=== PATIENT | female | born 1980 | race Caucasian/White ===

== ENCOUNTER 2017-04-03 12:26 | Emergency (ER) | payer MEDICAID ==
[~2017-04-03] VITALS: Ht 157.5 cm; Wt 97.5 kg
[~2017-04-03 12:26] MED LIST: ALBUTEROL0.09 MG/A1 IH; ALBUTEROL0.09 MG/A3 IH; AMOXICILLIN 50500 MG PO; ATIVAN1 MG PO; BACTRIM DS 8001 TA1 PO; BACTRIM DS 8001 TAB PO; BIAXIN FILMTAB500 MG PO; BUSPAR 5MG TAB5 MG PO; BUTALBITAL, ACE1 CA1 PO; CIPRO 500MG TA500 MG PO; CLONAZEPAM 1MG T1 MG PO; DICYCLOMINE HCL20 MG PO; FAMOTIDINE40 MG PO; FIORICET1 CAP PO; FLEXERIL10 MG PO; FLUOXETINE20 M2 FT; GABAPENTIN300 M1 PO; HYCODAN 5MG. TAB5 MG PO; IBU800 MG PO; KEFLEX 250MG.250 MG PO; KLONOPIN1 MG PO; LORTAB 5/500 501 TAB PO; LYRICA75 MG PO; MACROBID 100MG100 MG PO; MEDROL 4MG. DOSE4 MG PO; MOTRIN600 M1 PO; NAPROXEN SODIU500 MG PO; NYSTATIN100000 U/M PO; PAXIL40 MG PO; PERCOCET 5/3251 EACH PO; PHENERGAN 25MG.25 M1 PO; PHENERGAN25 M3 PO; PNV PRENATAL HE1 TAB PO; PREDNISONE 20MG20 MG PO; PROCARDIA PO; PROTONIX40 MG PO; PROZAC 20MG CAP20 MG PO; PYRIDIATE200 MG PO; PYRIDIUM 200MG200 MG PO; QUETIAPINE FUM100 M2 PO; RESTORIL 30MG C30 MG PO; SEROQUEL200 MG PO; SEROQUEL400 MG PO; SEROQUEL50 MG PO; SUBUTEX8 M1 SL; TRAMADOL 50MG T50 M1 PO; TRAMADOL 50MG T50 MG PO; TRAMADOL HYDRO100 MG PO; TRAZODONE100 MG PO; TYLENOL W/CODEI1 TA2 PO; ULTRAM50 MG PO; VISTARIL25 MG PO; XANAX 1MG TABLET1 MG PO; ZITHROMAX Z PA250 MG PO; ZITHROMAX Z-PA250 M1 PO; ZOFRAN4 MG PO
[2017-04-03] MEDS ORDERED: VENTOLIN H0.09 MG/Ac IH (12:40)
[2017-04-03] MEDS ORDERED: GABAPENTIN 600600 MG PO (12:40)
[2017-04-03] MEDS ORDERED: PANTOPRAZOLE SO40 M1 PO (12:40)
[2017-04-03] MEDS ORDERED: VISTARIL50 MG PO (12:41)
[2017-04-03] MEDS ORDERED: PRILOSEC20 M1 PO (12:41)
[2017-04-03] MEDS ORDERED: FLEXERIL10 MG PO (12:42)
[2017-04-03] MEDS ORDERED: LIORESAL 10MG.10 MG PO (13:06)
--- NOTE | 2017-04-03 13:07 | Urgent Treatment Center Report ---
History of Present Issue Date/Time Seen by Provider 04/03/17 1245 Visit Reason Pt arrived:Walked Presenting Problem:PT IS VERY ANXIOUS. PT STATES SHE HAS A H/A AND SEVERE ANXIETY. WAS SEEN AT [facility] LAST WEEK AND INSTRUCTED TO F/UP WITH HER DR. Location if Accident: Onset of symptoms date/time:/ or onset unknown for:MEDICAL HX UNKNOWN Have you (or family members/close friends) recently traveled outside the [place]? N If Yes, where/when: Have you had exposure to infectious disease within the past month? TB? Other? Specify: Patient state that she has history of anxiety. State that she is normally on Baclofen State that she ran out the medication and had to take a few flexeril States that they made her feel even more nervous and she began having a headache which has caused her anxiety to get worse. State that she has been trying to get in to see her family doctor but he has been out of the office ALLERGIES Coded Allergies: SHELLFISH (FOOD) (Intermediate, ANAPHYLAXIS 01/02/17) ketorolac (From TORADOL) (Intermediate, 04/03/17) Uncoded Allergies: CONTRAST DYE (Severe, ANAPHYLAXIS 01/02/17) Home Medications Reported Medications Albuterol Sulfate (Ventolin Hfa) 0.09 MG IH PRN PRN ASTHMA #18 Gabapentin (Gabapentin 600MG) 800 MG PO Q8 #90 Pantoprazole Sodium 40 MG PO DAILY #30 OMEPRAZOLE MAGNESIUM (Prilosec 20MG) 20 MG PO BID Hydroxyzine Pamoate (Vistaril) 50 MG PO BID Cyclobenzaprine Hcl (Flexeril) 5 MG PO TID History Medical History General CAD? No Angina: No [place]: No Hypertension? No Hyperlipidemia? Yes CHF? No DVT? No PE? No COPD? No Asthma? Yes Anemia? No GERD? No Gastric ulcers? No GI Bleed? No Hernia? Yes Thyroid Problems? No Hypothyroidism? No CVA? No Seizures? Yes Diabetes? No Insulin Dependent: No Insulin Pump: No Home FSBS? No Renal Insuffiency? No UTI? No Stones? No BPH? No GB Disease: Yes Nephritic Syndrome? No Asplenia? No Hepatitis? Yes Sickle Cell Disease? No Arthritis? No Migraines? Yes Cataracts? No Glaucoma? No MRSA? No HIV? No TB? No Anxiety? Yes Depression? No Cancer? No Immunization HX DT/Tetanus 1-4 Years Ago Surgical Hx Previous Surgery?Y TUMOR REMOVED FROM FOOT C SECTION X 3 GALLBLADDER Social History Smoking Hx Packs/day < 1 Pack Alcohol Alcohol: No Review of Systems All Other Systems Reviewed and Negative Psychiatric/Neurological anxiety, headache Comment Patient states that she recently moved here from [place] and she ran out of her baclofen states that she began taking Flexeril but it makes her anxiety worse and she then began with a headache from not sleeping well, State that not having her medication makes her feel more anxious so she came in to see if she could get her medication presccribed enough to do her until her family doctor returns to the office Physical Exam Vital Signs Vital Signs Date Time Temp Pulse Resp B/P Pulse O2 O2 Flow FiO2 Ox Delivery Rate 04/03 1237 98.3 107 20 151/95 99 General Appearance Patient appears slightly anxious standing in room beside exam table Respiratory Status Yes: trachea midline, chest symmetrical, non tender chest. No: respiratory distress. 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 No Results/Orders Current Medication Orders Sig/Cindy Start time Last Medication Dose Route Stop Time Status Admin Hydroxyzine Pamoate 25 MG ONCE ONE 04/03 1315 CAN PO 04/03 1316 Acetaminophen 1,000 MG ONCE ONE 04/03 1300 DC 04/03 PO 04/03 1301 1251 Diphenhydramine HCl 25 MG ONCE ONE 04/03 1300 CAN PO 04/03 1301 Hydroxyzine Pamoate 25 MG ONCE ONE 04/03 1300 DC 04/03 PO 04/03 1301 1302 Metoclopramide HCl 10 MG ONCE ONE 04/03 1300 CAN PO 04/03 1301 Hydroxyzine Pamoate 0 .STK-MED ONE 04/03 1256 DC PO Diphenhydramine HCl 0 .STK-MED ONE 04/03 1252 DC PO Acetaminophen 0 .STK-MED ONE 04/03 1248 DC PO Departure Departure Time of Disposition 1257 Disposition DC Home or Self Care(routine) Clinical Impression Primary Impression: Anxiety Condition STABLE Referrals DEBRA VOSS (Family) Patient Instructions DI for Anxiety -- Adult Additional Instructions Follow up with family doctor for further treatment REturn if needed Take medication as prescribed Discharge Counseling Counseled pt/family regarding diagnosis, medications/RX, home care, follow up needs Prescriptions Current Visit Scripts Baclofen (Lioresal 10mg Tab) 10 MG PO TID #30 TAB Comments Called Pharmacy Added Visteril 50mg enough tablets for 3 times daily for 30 days at 8220
--- NOTE | 2017-04-03 13:07 | Urgent Treatment Center Report ---
History of Present Issue Date/Time Seen by Provider 04/03/17 1245 Visit Reason Pt arrived:Walked Presenting Problem:PT IS VERY ANXIOUS. PT STATES SHE HAS A H/A AND SEVERE ANXIETY. WAS SEEN AT [facility] LAST WEEK AND INSTRUCTED TO F/UP WITH HER DR. Location if Accident: Onset of symptoms date/time:/ or onset unknown for:MEDICAL HX UNKNOWN Have you (or family members/close friends) recently traveled outside the [place]? N If Yes, where/when: Have you had exposure to infectious disease within the past month? TB? Other? Specify: Patient state that she has history of anxiety. State that she is normally on Baclofen State that she ran out the medication and had to take a few flexeril States that they made her feel even more nervous and she began having a headache which has caused her anxiety to get worse. State that she has been trying to get in to see her family doctor but he has been out of the office ALLERGIES Coded Allergies: SHELLFISH (FOOD) (Intermediate, ANAPHYLAXIS 01/02/17) ketorolac (From TORADOL) (Intermediate, 04/03/17) Uncoded Allergies: CONTRAST DYE (Severe, ANAPHYLAXIS 01/02/17) Home Medications Reported Medications Albuterol Sulfate (Ventolin Hfa) 0.09 MG IH PRN PRN ASTHMA #18 Gabapentin (Gabapentin 600MG) 800 MG PO Q8 #90 Pantoprazole Sodium 40 MG PO DAILY #30 OMEPRAZOLE MAGNESIUM (Prilosec 20MG) 20 MG PO BID Hydroxyzine Pamoate (Vistaril) 50 MG PO BID Cyclobenzaprine Hcl (Flexeril) 5 MG PO TID History Medical History General CAD? No Angina: No [place]: No Hypertension? No Hyperlipidemia? Yes CHF? No DVT? No PE? No COPD? No Asthma? Yes Anemia? No GERD? No Gastric ulcers? No GI Bleed? No Hernia? Yes Thyroid Problems? No Hypothyroidism? No CVA? No Seizures? Yes Diabetes? No Insulin Dependent: No Insulin Pump: No Home FSBS? No Renal Insuffiency? No UTI? No Stones? No BPH? No GB Disease: Yes Nephritic Syndrome? No Asplenia? No Hepatitis? Yes Sickle Cell Disease? No Arthritis? No Migraines? Yes Cataracts? No Glaucoma? No MRSA? No HIV? No TB? No Anxiety? Yes Depression? No Cancer? No Immunization HX DT/Tetanus 1-4 Years Ago Surgical Hx Previous Surgery?Y TUMOR REMOVED FROM FOOT C SECTION X 3 GALLBLADDER Social History Smoking Hx Packs/day < 1 Pack Alcohol Alcohol: No Review of Systems All Other Systems Reviewed and Negative Psychiatric/Neurological anxiety, headache Comment Patient states that she recently moved here from [place] and she ran out of her baclofen states that she began taking Flexeril but it makes her anxiety worse and she then began with a headache from not sleeping well, State that not having her medication makes her feel more anxious so she came in to see if she could get her medication presccribed enough to do her until her family doctor returns to the office Physical Exam Vital Signs Vital Signs Date Time Temp Pulse Resp B/P Pulse O2 O2 Flow FiO2 Ox Delivery Rate 04/03 1237 98.3 107 20 151/95 99 General Appearance Patient appears slightly anxious standing in room beside exam table Respiratory Status Yes: trachea midline, chest symmetrical, non tender chest. No: respiratory distress. 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 No Results/Orders Current Medication Orders Sig/Cindy Start time Last Medication Dose Route Stop Time Status Admin Hydroxyzine Pamoate 25 MG ONCE ONE 04/03 1315 CAN PO 04/03 1316 Acetaminophen 1,000 MG ONCE ONE 04/03 1300 DC 04/03 PO 04/03 1301 1251 Diphenhydramine HCl 25 MG ONCE ONE 04/03 1300 CAN PO 04/03 1301 Hydroxyzine Pamoate 25 MG ONCE ONE 04/03 1300 DC 04/03 PO 04/03 1301 1302 Metoclopramide HCl 10 MG ONCE ONE 04/03 1300 CAN PO 04/03 1301 Hydroxyzine Pamoate 0 .STK-MED ONE 04/03 1256 DC PO Diphenhydramine HCl 0 .STK-MED ONE 04/03 1252 DC PO Acetaminophen 0 .STK-MED ONE 04/03 1248 DC PO Departure Departure Time of Disposition 1257 Disposition DC Home or Self Care(routine) Clinical Impression Primary Impression: Anxiety Condition STABLE Referrals DEBRA VOSS (Family) Patient Instructions DI for Anxiety -- Adult Additional Instructions Follow up with family doctor for further treatment REturn if needed Take medication as prescribed Discharge Counseling Counseled pt/family regarding diagnosis, medications/RX, home care, follow up needs Prescriptions Current Visit Scripts Baclofen (Lioresal 10mg Tab) 10 MG PO TID #30 TAB Comments Called Pharmacy Added Visteril 50mg enough tablets for 3 times daily for 30 days at 3471
[2017-04-03 13:20] VITALS: BP 151/95
== END 2017-04-03 13:21 | disposition home or self-care (01) ==
LOC: UTC 12:26
DX: F41.9 Anxiety disorder, unspecified (principal); Z88.6 Allergy status to analgesic agent; J45.909 Unspecified asthma, uncomplicated; E78.5 Hyperlipidemia, unspecified; R56.9 Unspecified convulsions

== ENCOUNTER 2017-05-18 16:56 | Emergency (ER) | payer MEDICAID ==
[~2017-05-18] VITALS: Ht 157.5 cm; Wt 98.9 kg
[~2017-05-18 16:56] MED LIST changes: +GABAPENTIN 600600 MG PO; +LIORESAL 10MG.10 MG PO; +PANTOPRAZOLE SO40 M1 PO; +PRILOSEC20 M1 PO; +VENTOLIN H0.09 MG/Ac IH; +VISTARIL50 MG PO
--- OUTSIDE RECORDS SUMMARY | 2017-05-18 17:11 | External Medical Summary Rpt | CCD ---
Author Author , KRYSTAL RICE Address Unknown Phone [email or web address] Purpose Continuity of Care Document - 11-17-2011 through 2016 Results Labs Lab Lab Date Result Refere Interp Status Commen Order Detail nces retati t Range on Drugs identified in Urine by Screen method (01-02-2017 13:34) Ampheta NEGATIV <1000 complet mine 017 E ed [Presen 13:34 ce] in Urine by Screen method NEGATIV <50 complet oxy 017 E ed delta-9 13:34 tetrahy drocann abinol [Presen ce] in Unspeci fied specime n
--- OUTSIDE RECORDS SUMMARY | 2017-05-18 17:11 | External Medical Summary Rpt | CCD ---
Author Author , KRYSTAL RICE Address Unknown Phone [email or web address] Purpose Continuity of Care Document - 11-17-2011 [...]
--- OUTSIDE RECORDS SUMMARY | 2017-05-18 17:12 | External Medical Summary Rpt | CCD ---
Demographics Home Phone Preferred Language French Marital Status Unknown Adventist Affiliation Unknown Race Unknown Ethnic Group Unknown Author Author , KRYSTAL RICE Address Unknown Phone [email or web address] Support Name Relationship Address Phone VIET, Next Of Kin Unknown Unavailable AMARILYS Immunization Name Date Rout CVX Reac Dose Comm Prov Is Faci e tion ent ider Refu lity Give sed n Tdap 04-2 Intr 115 999 Hist 1005 No 1005 , 2-20 amus oric 00 00 Adso 15 cula al rbed r Info rmat ion - Sour ce Unsp ecif ied
--- OUTSIDE RECORDS SUMMARY | 2017-05-18 17:12 | External Medical Summary Rpt | CCD ---
Author Author [employer] Organization [employer] Address Unknown Phone Unavailable Purpose Continuity of Care Document - through 2016
--- OUTSIDE RECORDS SUMMARY | 2017-05-18 17:12 | External Medical Summary Rpt | CCD ---
Demographics Home Phone Preferred Language Bulgarian Marital Status Unknown Sabianist Affiliation Unknown Race Unknown Ethnic Group Unknown Author Author , KRYSTAL RICE Address Unknown Phone [email or web address] Name Relationship Address Phone IVET, Next Of Kin Unknown Unavailable AMARILYS Immunization Name Date Rout CVX Reac Dose Comm Prov Is Faci e tion ent ider Refu lity Give sed n Tdap 04-2 Intr 115 999 Hist 1005 No 1005 , 2-20 amus oric 00 00 Adso 15 cula al rbed r Info rmat ion - Sour ce Unsp ecif ied
--- OUTSIDE RECORDS SUMMARY | 2017-05-18 17:16 | External Medical Summary Rpt ---
Author Author ARZAFAR Hodges, [employer] Organization [employer] Address Unknown Phone Unavailable Results MPO/NE-3 Ab Observa Value Referen Units Interpr Notes Date tion ce etation Range Myelope Negativ No No No No Mar 30 roxidas e informa informa informa informa 2017 e Ab tion in tion in tion in tion in 10:34 IgG source source source source AM data data data data Protein Negativ No No No No Mar 30 ase-3 e informa informa informa informa 2016 Ab IgG tion in tion in tion in tion in 10:34 source source source source AM data data data data .RAST-[facility] Observa Value Referen Units Interpr Notes Date tion ce etation Range Ordered by an unspecified provider Immcap See No No No REFEREN Mar 30 Score-A Note informa informa informa CE 2017 [facility] tion in tion in tion in INTERVA 1:12 AM source source source L: data data data Allerge n, Interpr etation \\.br\\ Less than 0.10 kU/L... ...Clas s 0.....N o signifi cant level detecte d\\.br\\ 0.10-0. 34 kU/L... ....... .Class 0/1...C linical relevan ce\\.br\\ undeter mined\\. br\\ 0.35-0. 70 kU/L... ....... .Class 1.....L ow\\.br\\ 0.71-3. 50 kU/L... ....... .Class 2.....M oderate \\.br\\ 3.51-17 .50 kU/L... ....... Class 3.....H igh\\.br \\ 17.51-5 0.00 kU/L... ......C lass 4.....V adriano High\\.b r\\ 50.01-1 00.00 kU/L... .....Cl ass 5.....V adriano High\\.b r\\ Greater than 100.00k U/L..Cl ass 6.....V adriano High\\.b r\\Aller gen results of 0.10-0. 34 kU/L are intende d for special ist use\\.br \\as the clinica l relevan ce is undeter mined. Even though increas ing\\.br \\ranges are reflect alexia of increas ing concent rations of\\.br\\ allerge n-speci fic IgE, these concent rations may not correla te with\\.b r\\the degree of clinica l respons e or skin testing results when\\.b r\\chall enged with a specifi c allerge n. The correla tion of allergy \\.br\\la borator y results with clinica l history and in vivo reactiv ity to\\.br\\ specifi c allerge ns is essenti al. A negativ e test may not rule out\\.br \\clinic al allergy or even anaphyl axis.\\. br\\Perf ormed by [facility]ael,\\ .br\\[address] [facility] [place] [address] \\. br\\www. [employer] .Jemstep, Abdirashid Echevarria MD - Lab. Directo r REG5 FUCHS-[facility] Observa Value Referen Units Interpr Notes Date tion ce etation Range Common 0.12 <=0.34 kunits/ No No Mar 30 Ragweed L informa informa 2017 -[facility] tion in tion in 1:03 AM source source data data [place]roa 0.57 <=0.34 kunits/ High No Mar 30 chGerma L informa 2016 n-[facility] tion in 1:03 AM source data Sycamor 0.16 <=0.34 kunits/ No No Mar 30 e L informa informa 2017 Tree-AR tion in tion in 1:03 AM UP source source data data [place] 0.17 <=0.34 kunits/ No No Mar 30 Tree-AR L informa informa 2017 UP tion in tion in 1:03 AM source source data data Pecan 0.11 <=0.34 kunits/ No No Sep 21 Tree-AR L informa informa 2017 UP tion in tion in 1:03 AM source source data data Mouse <0.10 <=0.34 kunits/ No No Sep 21 Epithel L informa informa 2016 ium-[facility] tion in tion in 1:03 AM P source source data data M. 0.13 <=0.34 kunits/ No No Sep 21 racemos L informa informa 2017 us-[facility] tion in tion in 1:03 AM source source data data Whilte <0.10 <=0.34 kunits/ No No Sep Mulberr L informa informa 2017 y tion in tion in 1:03 AM Tree-AR source source UP data data Dog <0.10 <=0.34 kunits/ No No Sep 21 Dander- L informa informa 2016 [facility] tion in tion in 1:03 AM source source data data Sheep 0.12 <=0.34 kunits/ No No Sep [place]- L informa informa 2016 [facility] tion in tion in 1:03 AM source source data data IgE-[facility] 1005 <=214 kunits/ High REFEREN Sep 21 P L CE 2017 INTERVA 1:03 AM L: Immunog lobulin E, Serum\\. br\\Acce ss complet e set of age- and/or gender- specifi c referen ce\\.br\\ interva ls for this test in the [facility] ory Test Directo ry\\.br\\ ([email or web address]). Alterna <0.10 <=0.34 kunits/ No No Sep 21 kelly L informa informa 2016 alt-[facility] tion in tion in 1:03 AM P source source data data Box-eld 0.14 <=0.34 kunits/ No No Sep 21 er/Mapl L informa informa 2017 e tion in tion in 1:03 AM Tree-AR source source UP data data Cat <0.10 <=0.34 kunits/ No No Sep Epithel L informa informa 2016 ium-[facility] tion in tion in 1:03 AM P source source data data [place] 0.20 <=0.34 kunits/ No No Sep 21 n [place] L informa informa 2017 tion in tion in 1:03 AM Tree-AR source source UP data data Cottonw 0.13 <=0.34 kunits/ No No Sep 21 ood L informa informa 2017 Tree-AR tion in tion in 1:03 AM UP source source data data Milk-AR 0.20 <=0.34 kunits/ No Perform Sep 21 UP L informa ed by 2017 tion in [facility] 1:03 AM source Laborat data ories,\\ .br\\[address] [facility] [place] [address] \\. br\\www. Tindie, Abdirashid Echevarria MD - Lab. Directo r Peanut- 0.13 <=0.34 kunits/ No No Sep 21 [facility] L informa informa 2017 tion in tion in 1:03 AM source source data data Pigweed 0.10 <=0.34 kunits/ No No Sep 21 -[facility] L informa informa 2017 tion in tion in 1:03 AM source source data data Argentine 0.15 <=0.34 kunits/ No No Sep 21 L informa informa 2017 Thistle tion in tion in 1:03 AM -[facility] source source data data Paulo 0.12 <=0.34 kunits/ No No Sep 21 L informa informa 2017 Grass-A tion in tion in 1:03 AM [facility] source source data data Hormode <0.10 <=0.34 kunits/ No No Sep 21 ndrum-A L informa informa 2017 [facility] tion in tion in 1:03 AM source source data data Elm 0.14 <=0.34 kunits/ No No Sep 21 Tree-AR L informa informa 2017 UP tion in tion in 1:03 AM source source data data Winfield 0.11 <=0.34 kunits/ No No Sep 21 Tree-AR L informa informa 2017 UP tion in tion in 1:03 AM source source data data Birch <0.10 <=0.34 kunits/ No No Sep 21 Tree-AR L informa informa 2017 UP tion in tion in 1:03 AM source source data data Aspergi <0.10 <=0.34 kunits/ No No Sep 21 llus L informa informa 2017 fum-[facility] tion in tion in 1:03 AM P source source data data D <0.10 <=0.34 kunits/ No No Sep 21 pterony L informa informa 2017 ssinus- tion in tion in 1:03 AM [facility] source source data data D 0.20 <=0.34 kunits/ No No Sep 21 farinae L informa informa 2017 -[facility] tion in tion in 1:03 AM source source data data [place] 0.12 <=0.34 kunits/ No No Sep 21 L informa informa 2017 Grass-A tion in tion in 1:03 AM [facility] source source data data White <0.10 <=0.34 kunits/ No No Sep 21 Shaun L informa informa 2017 Tree-AR tion in tion in 1:03 AM UP source source data data P. 0.14 <=0.34 kunits/ No No Sep 21 notatum L informa informa 2017 -[facility] tion in tion in 1:03 AM source source data data Choudhury-[facility] Observa Value Referen Units Interpr Notes Date tion ce etation Range Choudhury 0 0 - 40 A_unit/ No INTERPR Sep 20 Ab mL informa ETIVE 2017 IgG-[facility] tion in INFORMA 6:26 PM P source TION: data CHOUDHURY (HANK) Ab, IgG\\.br \\ 29 AU/mL or Less ....... ...... Negativ e\\.br\\ 30 - 40 AU/mL ....... ....... .. Equivoc al\\.br\\ 41 AU/mL or Greater ....... ... Positiv e\\.br\\S mith antibod y is very specifi c for systemi c lupus erythem atosus\\ .br\\(SL E) but only occurs in 30-35% of SLE cases. The presenc e of\\.br\\ antibod ies to Choudhury is often associa jones with renal disease .\\.br\\P erforme d by [facility],\\ .br\\[address], [facility] [place] [address] \\. br\\www. Tindie, Abdirashid Echevarria MD - Lab. Directo r Scler IgG-[facility] Observa Value Referen Units Interpr Notes Date tion ce etation Range Scler 0 0 - 40 A_unit/ No INTERPR Sep 20 Ab mL informa ETIVE 2017 IgG-[facility] tion in INFORMA 6:26 PM P source TION: data Sclerod jane (Scl-70 ) (HANK) Ab, IgG\\.br \\ 29 AU/mL or Less ....... ...... Negativ e\\.br\\ 30 - 40 AU/mL ....... ....... .. Equivoc al\\.br\\ 41 AU/mL or Greater ....... ... Positiv e\\.br\\T he presenc e of Scl-70 antibod ies (also referre d to as\\.br\\ topoiso merase I, rafat-I or EBONIE) is conside red diagnos tic for\\.br \\system ic scleros is (SSc). Scl-70 antibod ies alone are detecte d in\\.br\\ about 20 percent of SSc patient s and are associa jones with the\\.br \\diffus e form of the disease , which may include specifi c organ\\. br\\invo lvement and poor prognos is. Scl-70 antibod ies have also been\\.b r\\repor jones in a varying percent age of patient s with systemi c lupus\\. br\\eryt hematos us (SLE). Scl-70 (rafat-1 ) is a DNA binding protein and\\.br \\anti-D NA/DNA complex es in the sera of SLE patient s may bind to\\.br\\ rafat-I, leading to a false-p ositive result. The presenc e of Scl-70\\ .br\\ant ibody in sera may also be due to contami nation of recombi nant\\.b r\\Scl-7 0 with DNA derived from cellula r materia l used in\\.br\\ immunoa ssays. Strong clinica l correla tion is recomme nded if both\\.b r\\Scl-7 0 and dsDNA antibod ies are detecte d.\\.br\\ Negativ e results do not necessa rily rule out the presenc e of SSc.\\.b r\\If clinica l suspici on remains , conside r further testing for\\.br \\centro mere, RNA polymer ase III and U3-RIM ROLLER OPERATOR, PM/Scl, or Th/To\\. br\\anti bodies. \\.br\\Pe rformed by [employer],\\ .br\\[address],[place] [id number] [phone]\\. br\\www. Tindie, Abdirashid Echevarria MD - Lab. Directo r RIM ROLLER OPERATOR IgG-[facility] Observa Value Referen Units Interpr Notes Date tion ce etation Range RIM ROLLER OPERATOR Ab 0 0 - 40 A_unit/ No INTERPR Sep 20 IgG-AR[facility] mL informa ETIVE 2016 P tion in INFORMA 6:26 PM source TION: data Ribonuc leic Protein (HANK)An tibody, IgG\\.br \\ 29 AU/mL or Less ....... ...... Negativ e\\.br\\ 30 - 40 AU/mL ....... ....... .. Equivoc al\\.br\\ 41 AU/mL or Greater ....... ... Positiv e\\.br\\R RESIDENTIAL COLLECTIONS antibod y is seen in 95-100 percent of mixed connect alexia tissue\\ .br\\dis ease and is conside red specifi c for this syndrom e if other\\. br\\anti bodies are negativ e; RIM ROLLER OPERATOR is also present in 20-30 percent of\\.br\\ systemi c lupus erythem atosus and 15-25 percent of progres sive\\.b r\\syste gail scleros is. RIM ROLLER OPERATOR antigen s also contain epitope s that are\\.br \\immuno logical ly identic al to free Choudhury antigen s, therefo re, the\\.br \\Choudhury antibod y respons e must be conside red when interpr eting RIM ROLLER OPERATOR\\.br \\result s.\\.br\\ Perform ed by [facility],\\ .br\\[address] [place] [address] [phone]\\. br\\www. Tindie, Abdirashid Echevarria MD - Lab. Directo r JAMEL Scn Observa Value Referen Units Interpr Notes Date tion ce etation Range JAMEL Negativ No No No \\.br\\AN Mar 29 Screen e informa informa informa A 2017 tion in tion in tion in samples 10:06 source source source are AM data data data screene d using an automat ed EIA assay. All samples that\\.b r\\scree n positiv e are titered by an IFA method and will include an JAMEL pattern .\\.br\\A titer of < 1:80 is conside red clinica lly insigni ficant. In general , a titer\\. br\\>= 1:160 is conside red signifi cant positiv e. CK Observa Value Referen Units Interpr Notes Date tion ce etation Range Creatin 79 26 - IU/L No No Mar 28 e 192 informa informa 2017 kinase tion in tion in 10:02 [Enzyma source source AM tic data data activit y/volum e] in Serum or Plasma Sed Rate Observa Value Referen Units Interpr Notes Date tion ce etation Range Erythro 12 0 - 20 mm/hr No No Mar 28 cyte informa informa 2017 sedimen tion in tion in 9:47 AM tation source source rate by data data [place] travis method CT CHEST WO CONTRAST Observa Value Referen Units Interpr Notes Date tion ce etation Range \\.br\\CT No No No No Jan 22 CHEST informa informa informa informa 2017 WO tion in tion in tion in tion in 2:16 PM CONTRAS source source source source T data data data data 01/23/20 17 2:16 PM\\.br\\ \\.br\\Cl inical: R93.8-A bnormal finding s on diagnos tic imaging of other specifi ed\\.br\\ body\\.b r\\struc tures-I CD-10-C M\\.br\\\\ .br\\COM PARISON S: PA and lateral chest x-ray, dated 017.\\.b r\\\\.br\\ TECHNIC AL FACTORS : Helical ly acquire d axial images were obtaine d from the\\.br \\thorac ic inlet through the upper abdomen . Images were reforma tted at 5mm\\.br \\increm ents. No contras t was adminis tered.\\ .br\\\\.b r\\FINDI NGS:\\.b r\\\\.br\\ The trachea and central airways are patent. There are no pleural effusio ns.\\.br \\There are bilater al symmetr ic diffuse mild patchy areas of groundg lass\\.b r\\opaci ty.\\.br \\The finding s are in both lungs but are most pronoun panda in the upper lung\\.b r\\zones .\\.br\\T here is a benign calcifi ed granulo ma in the right lower lobe and calcifi ed\\.br\\ right hilar and subcari nal lymph nodes consist ent with old granulo matous\\ .br\\dis ease. There are no suspici ous pulmona ry nodules or masses in the chest.\\ .br\\\\.b r\\The thyroid gland is normal. The esophag us is normal. There is no\\.br\\ mediast inal or\\.br\\ hilar lymphad enopath y. There is no axillar y lymphad enopath y.\\.br\\ \\.br\\Th e upper abdomen is normal. \\.br\\\\. br\\IMPR ESSION: \\.br\\\\. br\\Ther e are mild bilater al scatter ed diffuse patchy ground glass opaciti es\\.br\\ through out both lungs, slightl y more pronoun panda in the upper lobes. The\\.br \\findin g\\.br\\i s nonspec ific and include s a broad differe ntial of possibi lities to\\.br\\ include \\.br\\in fection , chronic interst itial lung disease or hyperse nsitivi ty\\.br\\ pneumon itis.\\. br\\\\.br \\There is CT evidenc e of old granulo matous disease .\\.br\\ Choriogonadotropin.beta subunit [Units] in 24 hour Urine Observa Value Referen Units Interpr Notes Date tion ce etation Range Choriogon NEG No No No Jan 02 adotropin informati informati informati 2016 1:34 .beta on in on in on in PM subunit source source source [Units] data data data in 24 hour Urine Drugs identified in Urine by Screen method Observa Value Referen Units Interpr Notes Date tion ce etation Range Positive urine drug screen samples are stored for 7 days. Contact the Lab if confirmation of positives is needed. Ampheta NEGATIV <1000 ng/mL No No Jan 02 mine E informa informa 2016 [Presen tion in tion in 1:34 PM ce] in source source Urine data data by Screen method Barbitura <200 ng/mL No No Jan 02 anjel informati informati 2016 1:34 [Mass/vol on in on in PM ume] in source source Urine by data data Screen method Benzodiaz 200 ng/mL ng/mL No No Jan 02 epines informati informati 2016 1:34 [Mass/vol on in on in PM ume] in source source Serum or data data Plasma by Screen method Cocaine <300 ng/g No No Jan 02 [Mass/vol informati informati 2017 1:34 ume] in on in on in PM Unspecifi source source ed data data specimen Methadone <300 ng/mL No No Jan 02 informati informati 2016 1:34 [Mass/vol on in on in PM ume] in source source Unspecifi data data ed specimen Opiates <300 ng/mL No No Jan 02 [Mass/vol informati informati 2016 1:34 ume] in on in on in PM Unspecifi source source ed data data specimen Phencycli <25 ng/mL No Jan 02 dine informati informati 2016 1:34 [Mass/vol on in on in PM ume] in source source Unspecifi data data ed specimen 11-Hydr NEGATIV <50 ng/mL No No Jan 02 oxy E informa informa 2017 delta-9 tion in tion in 1:34 PM source source tetrahy data data drocann abinol [Presen ce] in Unspeci fied specime n Amylase [Enzymatic activity/volume] in Serum or Plasma Observa Value Referen Units Interpr Notes Date tion ce etation Range Amylase 25 - 115 U/L Normal No Jan 02 [Enzymati informati 2017 1:34 c on in PM activity/ source volume] data in Serum or Plasma Comprehensive metabolic 2000 panel in Serum or Plasma Observa Value Referen Units Interpr Notes Date tion ce etation Range Albumin/G 1.1 - 1.8 No Low No Jan 02 lobulin informati informati 2016 1:34 [Mass on in on in PM ratio] in source source Serum or data data Plasma Albumin 3.4 - 5.0 gm/dL Normal No Jan 02 [Mass/vol informati 2016 1:34 ume] in on in PM Serum or source Plasma data Alkaline 46 - 116 U/L High No Jan 02 phosphata informati 2016 1:34 se on in PM [Enzymati source c data activity/ volume] in Serum or Plasma Bilirubin 0.2 - 1.0 mg/dL Normal No Jan 02 .total informati 2016 1:34 [Mass/vol on in PM ume] in source Serum or data Plasma Urea 7 - 18 mg/dL Normal No Jan 02 nitrogen informati 2016 1:34 [Mass/vol on in PM ume] in source Serum or data Plasma Calcium 8.5 - mg/dL Normal No Jan 02 [Mass/vol 10.1 informati 2016 1:34 ume] in on in PM Serum or source Plasma data Chloride 98 - 107 mmoL/L Normal No Jan 02 [Moles/vo informati 2016 1:34 lume] in on in PM Serum or source Plasma data Carbon 21.0 - mmoL/L Normal No Jan 02 dioxide, 32.0 informati 2017 1:34 total on in PM [Moles/vo source lume] in data Serum or Plasma Creatinin 0.55 - mg/dL Normal No Jan 02 e 1.02 informati 2016 1:34 [Mass/vol on in PM ume] in source Serum or data Plasma Creatinin 50 - 200 ML/MIN Normal No Jan 02 e renal informati 2016 1:34 clearance on in PM source predicted data by Cockcroft -Gault formula Estimated 59- ML/MIN No REFERENCE Jan 02 informati RANGE: 2017 1:34 glomerula on in >60 PM r source ML/MIN/1. filtratio data 73 SQUARE n rate METERSIf (GF this patient is -A merican, then multiply theresult by 1.210. Globulin 1.3 - 3.2 gm/dL High No Jan 02 [Mass/vol informati 2016 1:34 ume] in on in PM Serum source data Glucose 74 - 106 mg/dL Normal No Jan 02 [Mass/vol informati 2016 1:34 ume] in on in PM Serum or source Plasma data Potassium 3.5 - 5.1 mmoL/L Normal No Jan 02 inform2016 1:34 [Moles/vo on in PM lume] in source Serum or data Plasma Sodium 136 - 145 mmoL/L Normal No Jan 02 [Moles/vo inform2016 1:34 lume] in on in PM Serum or source Plasma data Aspartate 15 - 37 U/L Normal No Jan 02 inform2016 1:34 aminotran on in PM sferase source [Enzymati data c activity/ volume] in Serum or Plasma Alanine 12 - 78 U/L Normal No Jan 02 aminotran inform2016 1:34 sferase on in PM [Enzymati source c data activity/ volume] in Serum or Plasma Protein 6.4 - 8.2 gm/dL Normal No Jan 02 [Mass/vol inform2016 1:34 ume] in on in PM Serum or source Plasma data Lipase [Enzymatic activity/volume] in Serum or Plasma Observa Value Referen Units Interpr Notes Date tion ce etation Range Lipase 73 - 393 U/L Normal No Jan 02 [Enzymati informati 2016 1:34 c on in PM activity/ source volume] data in Serum or Plasma CBC W Auto Differential panel in Blood Observa Value Referen Units Interpr Notes Date tion ce etation Range Granulocy 1.8 - 7.8 K/mm3 High No Jan 02 anjel informati 2016 1:34 [#/volume on in PM ] in source Blood by data Automated count Granulocy 37.0 - % Normal No Jan 02 anjel/100 80.0 informati 2016 1:34 leukocyte on in PM s in source Blood by data Automated count Hematocri 37.0 - % Normal No Jan 02 t [Volume 47.0 ati 2016 1:34 on in PM Fraction] source of Blood data Hemoglobi 12.2 - g/dL Normal No Jan 02 n 16.2 informati 2016 1:34 [Mass/vol on in PM ume] in source Blood data Lymphocyt 0.7 - 4.5 K/mm3 Normal No Jan 02 es informati 2016 1:34 [#/volume on in PM ] in source Unspecifi data ed specimen by Automated count Lymphocyt 10 - 50.0 % Normal No Jan 02 es informati 2016 1:34 [#/volume on in PM ] in source Unspecifi data ed specimen by Automated count Erythrocy 27 - 31.2 pg Normal No Jan 02 te mean informati 2016 1:34 corpuscul on in PM ar source hemoglobi data n [Entitic mass] Erythrocy 31.8 - g/dl Normal No Jan 02 te mean 35.4 informati 2016 1:34 corpuscul on in PM ar source hemoglobi data n concentra tion [Mass/vol ume] by Automated count Erythrocy 82.2 - fL Normal No Jan 02 te mean 97.8 informati 2016 1:34 corpuscul on in PM ar volume source [Entitic data volume] by Automated count Monocytes 0.1 - 1.0 K/mm3 Normal No Jan 02 informati 2016 1:34 [#/volume on in PM ] in source Blood by data Automated count Monocytes 1.7 - 9.3 % Normal No Jan 02 / informati 2016 1:34 leukocyte on in PM s in source Blood by data Automated count Platelets 142 - 424 K/mm3 Normal No Jan 02 informati 2016 1:34 [#/volume on in PM ] in source Blood data Erythrocy 4.2 - 5.4 M/mm3 Normal No Jan 02 anjel informati 2016 1:34 [#/volume on in PM ] in source Amniotic data fluid Erythrocy 11.5 - % Normal Jan 02 te 17.5 informati 2016 1:34 distribut on in PM ion width source [Entitic data volume] by Automated count Leukocyte 4.8 - K/mm3 High No Jan 02 s 10.8 informati 2016 1:34 [#/volume on in PM ] in source Blood data XR CHEST PA AND LATERAL Observa Value Referen Units Interpr Notes Date tion ce etation Range \\.br\\XR No No No No Dec 08 CHEST informa informa informa informa 2016 PA AND tion in tion in tion in tion in 1:57 PM LATERAL source source source source data data data data 7 1:57 PM\\.br\\ \\.br\\CL INICAL: -report ed history of left lung mass and right lung "spot"\\ .br\\\\.b r\\Findi ngs: Calcifi ed granulo ma present in lower right lung. Lungs otherwi se\\.br\\ clear. I have reviewe d a CT of March 06, 2011 that shows a 3 to 4 mm\\.br\\ noncalc ified subpleu ral nodule in the right middle lobe. Current \\.br\\re commend ations\\ .br\\do not require follow- up for a nodule of this size in a patient of this age\\.br \\must\\. br\\ther e is a history of maligna ncy. That nodule is too small and too faint to\\.br\\ be\\.br\\ seen by chest radiogr aph.\\.b r\\\\.br\\ IMPRESS ION:\\.b r\\No focal infiltr ate. Calcifi ed granulo ma lower right lung.\\. br\\ Lipase Observa Value Referen Units Interpr Notes Date tion ce etation Range Lipase 34 13 - 60 IU/L No No Dec 08 Lvl informa informa 2017 tion in tion in 1:22 PM source source data data HCG Qual Observa Value Referen Units Interpr Notes Date tion ce etation Range HCG Negativ No No No No Dec 08 QUAL e informa informa informa informa 2017 tion in tion in tion in tion in 1:19 PM source source source source data data data data Auto Diff Observa Value Referen Units Interpr Notes Date tion ce etation Range Neutrop 69.8 No % No No Dec 08 hils informa informa informa 2016 [#/volu tion in tion in tion in 1:09 PM me] in source source source Blood data data data by Automat ed count Lymphoc 23.1 No % No No Dec 08 ytes informa informa informa 2016 [#/volu tion in tion in tion in 1:09 PM me] in source source source Blood data data data by Automat ed count Monocyt 5.8 No % No No Jose 1 es informa informa informa 2016 [#/volu tion in tion in tion in 1:09 PM me] in source source source Blood data data data by Automat ed count Eos 0.7 No % No No Jose 1 Percent informa informa informa 2017 tion in tion in tion in 1:09 PM source source source data data data Baso 0.6 No % No No Jose 1 Percent informa informa informa 2017 tion in tion in tion in 1:09 PM source source source data data data Neut# 8.5 1.8 - x10(3)/ High No Jose 1 7.7 mcL informa 2017 tion in 1:09 PM source data Lymph# 2.8 0.6 - x10(3)/ No No Jose 1 4.8 mcL informa informa 2017 tion in tion in 1:09 PM source source data data Walker# 0.7 0.0 - x10(3)/ No No Jose 1 1.3 mcL informa informa 2017 tion in tion in 1:09 PM source source data data Eos# 0.1 0.0 - x10(3)/ No No Jose 1 0.5 mcL informa informa 2017 tion in tion in 1:09 PM source source data data Baso# 0.1 0.0 - x10(3)/ No No Jose 1 0.2 mcL informa informa 2017 tion in tion in 1:09 PM source source data data CBC Observa Value Referen Units Interpr Notes Date tion ce etation Range LEUKOCY 12.2 4.0 - x10(3)/ High No Dec 1 ANJEL 11.0 mcL informa 2017 tion in 1:09 PM source data Erythro 4.67 3.80 - x10(6)/ No No Dec 08 cytes 5.10 mcL informa informa 2017 [#/volu tion in tion in 1:09 PM me] in source source Blood data data by Automat ed count Hemoglo 14.0 12.0 - gm/dL No No Dec 08 bin 15.6 informa informa 2017 [Mass/v tion in tion in 1:09 PM olume] source source in data data Blood Hematoc 42.5 35.7 - % No No Dec 08 rit 45.9 informa informa 2017 [Volume tion in tion in 1:09 PM source source Fractio data data n] of Blood by Automat ed count Erythro 91.0 82.5 - fL No No Dec 08 cyte 99.8 informa informa 2017 mean tion in tion in 1:09 PM corpusc source source ular data data volume [Entiti c volume] by Automat ed count Erythro 30.0 27.0 - pg No No Dec 08 cyte 34.3 informa informa 2017 mean tion in tion in 1:09 PM corpusc source source ular data data hemoglo bin [Entiti c mass] by Automat ed count Erythro 32.9 32.1 - gm/dL No No Dec 08 cyte 35.3 informa informa 2017 mean tion in tion in 1:09 PM corpusc source source ular data data hemoglo bin concent ration [Mass/v olume] by Automat ed count Erythro 13.7 11.5 - % No No Dec 08 cyte 15.0 informa informa 2017 distrib tion in tion in 1:09 PM ution source source width data data [Ratio] by Automat ed count Platele 227 144 - x10(3)/ No No Dec 08 ts 423 mcL informa informa 2017 [#/volu tion in tion in 1:09 PM me] in source source Blood data data by Automat ed count MPV 9.7 6.8 - fL No No Dec 08 10.8 informa informa 2017 tion in tion in 1:09 PM source source data data EK EKG 12 LEAD Observa Value Referen Units Interpr Notes Date tion ce etation Range Station No No No No Dec 08 kaycee ECG informa informa informa informa 2017 tion in tion in tion in tion in 12:40 Study\\. source source source source PM br\\St. data data data data Elizabe th [facility]\\ .br\\Int erpreti ve Stateme nts\\.br \\SINUS RHYTHM\\ .br\\No acute ST-T wave abnorma lity\\.b r\\No previou s EKG for compari son.\\.b r\\Corre late clinica lly.\\.b r\\Elect ronical ly Signed On 7 16:11:2 0 EDT by Reinaldo navarro MD UA Observa Value Referen Units Interpr Notes Date tion ce etation Range UA Yellow No No No No Dec 08 Color informa informa informa informa 2017 tion in tion in tion in tion in 1:06 PM source source source source data data data data UA Clear Clear No No No Dec 08 Appear informa informa informa 2017 tion in tion in tion in 1:06 PM source source source data data data UA Negativ Negativ No No No Dec 08 Glucose e e informa informa informa 2017 tion in tion in tion in 1:06 PM source source source data data data UA Negativ Negativ No No No Dec 08 Ketones e e informa informa informa 2017 tion in tion in tion in 1:06 PM source source source data data data UA Negativ Negativ No No No Dec 08 Blood e e informa informa informa 2017 tion in tion in tion in 1:06 PM source source source data data data UA pH 7.0 5.0 - No No Referen Dec 08 8.0 informa informa ce 2017 tion in tion in range 1:06 PM source source valid data data for random specime ns only. UA Negativ Negativ No No No Dec 08 Protein e e informa informa informa 2017 tion in tion in tion in 1:06 PM source source source data data data UA 0.2 <=1 No No No Dec 08 Urobili E.U./dL E.U./dL informa informa informa 2017 nogen tion in tion in tion in 1:06 PM source source source data data data UA Negativ Negativ No No No Dec 08 Nitrite e e informa informa informa 2017 tion in tion in tion in 1:06 PM source source source data data data UA Leuk Negativ Negativ No No No Dec 08 Est e e informa informa informa 2017 tion in tion in tion in 1:06 PM source source source data data data UA Spec <=1.005 1.001 - No No Referen Dec 08 Grav 1.035 informa informa ce 2017 tion in tion in range 1:06 PM source source valid data data for random specime ns only. UA Observa Value Referen Units Interpr Notes Date tion ce etation Range UA Yellow No No No No Dec 19 Color informa informa informa informa 2015 tion in tion in tion in tion in 9:32 PM source source source source data data data data UA Clear Clear No No No Dec 19 Appear informa informa informa 2015 tion in tion in tion in 9:32 PM source source source data data data UA Negativ Negativ No No No Dec 19 Glucose e e informa informa informa 2015 tion in tion in tion in 9:32 PM source source source data data data UA Negativ Negativ No No No Dec 19 Ketones e e informa informa informa 2015 tion in tion in tion in 9:32 PM source source source data data data UA Negativ Negativ No No No Dec 19 Blood e e informa informa informa 2015 tion in tion in tion in 9:32 PM source source source data data data UA pH 6.0 5.0 - No No Referen Dec 19 8.0 informa informa ce 2014 tion in tion in range 9:32 PM source source valid data data for random specime ns only. UA Negativ Negativ No No No Dec 19 Protein e e informa informa informa 2015 tion in tion in tion in 9:32 PM source source source data data data UA 0.2 <=1 No No No Dec 19 Urobili E.U./dL E.U./dL informa informa informa 2014 nogen tion in tion in tion in 9:32 PM source source source data data data UA Negativ Negativ No No No Dec 19 Nitrite e e informa informa informa 2015 tion in tion in tion in 9:32 PM source source source data data data UA Leuk Negativ Negativ No No No Dec 19 Est e e informa informa informa 2014 tion in tion in tion in 9:32 PM source source source data data data UA Spec 1.025 No No No Referen Dec 19 Grav informa informa informa ce 2014 tion in tion in tion in range 9:32 PM source source source valid data data data for random specime ns only. Auto Diff Observa Value Referen Units Interpr Notes Date tion ce etation Range Neutrop 68.1 No % No No Oct 29 hils informa informa informa 2014 [#/volu tion in tion in tion in 8:04 AM me] in source source source Blood data data data by Automat ed count Lymphoc 25.0 No % No No Oct 29 ytes informa informa informa 2014 [#/volu tion in tion in tion in 8:04 AM me] in source source source Blood data data data by Automat ed count Monocyt 6.5 No % No No Oct 29 es informa informa informa 2014 [#/volu tion in tion in tion in 8:04 AM me] in source source source Blood data data data by Automat ed count Eos 0.1 No % No No Apr 22 Percent informa informa informa 2015 tion in tion in tion in 8:04 AM source source source data data data Baso 0.3 No % No No Apr 22 Percent informa informa informa 2015 tion in tion in tion in 8:04 AM source source source data data data Neut# 8.4 1.8 - x10(3)/ High No Apr 22 7.7 mcL informa 2015 tion in 8:04 AM source data Lymph# 3.1 0.6 - x10(3)/ No No Apr 22 4.8 mcL informa informa 2015 tion in tion in 8:04 AM source source data data Walker# 0.8 0.0 - x10(3)/ No No Apr 22 1.3 mcL informa informa 2015 tion in tion in 8:04 AM source source data data Eos# 0.0 0.0 - x10(3)/ No No Apr 22 0.5 mcL informa informa 2015 tion in tion in 8:04 AM source source data data Baso# 0.0 0.0 - x10(3)/ No No Apr 22 0.2 mcL informa informa 2015 tion in tion in 8:04 AM source source data data CBC Observa Value Referen Units Interpr Notes Date tion ce etation Range LEUKOCY 12.4 4.0 - x10(3)/ High No Apr 22 ANJEL 11.0 mcL informa 2014 tion in 8:04 AM source data Erythro 2.41 3.80 - x10(6)/ Low No Apr 22 cytes 5.10 mcL informa 2014 [#/volu tion in 8:04 AM me] in source Blood data by Automat ed count Hemoglo 7.7 12.0 - gm/dL Low No Apr 22 bin 15.6 informa 2014 [Mass/v tion in 8:04 AM olume] source in data Blood Hematoc 23.0 35.7 - % Low No Apr 22 rit 45.9 informa 2014 [Volume tion in 8:04 AM source Fractio data n] of Blood by Automat ed count Erythro 95.3 82.5 - fL No No Oct 29 cyte 99.8 informa informa 2014 mean tion in tion in 8:04 AM corpusc source source ular data data volume [Entiti c volume] by Automat ed count Erythro 31.9 27.0 - pg No No Oct 29 cyte 34.3 informa informa 2015 mean tion in tion in 8:04 AM corpusc source source ular data data hemoglo bin [Entiti c mass] by Automat ed count Erythro 33.5 32.1 - gm/dL No No Oct 29 cyte 35.3 informa informa 2015 mean tion in tion in 8:04 AM corpusc source source ular data data hemoglo bin concent ration [Mass/v olume] by Automat ed count Erythro 13.4 11.5 - % No No Oct 29 cyte 15.0 informa informa 2015 distrib tion in tion in 8:04 AM ution source source width data data [Ratio] by Automat ed count Platele 198 144 - x10(3)/ No No Oct 29 ts 423 mcL informa informa 2015 [#/volu tion in tion in 8:04 AM me] in source source Blood data data by Automat ed count MPV 10.6 6.8 - fL No No Oct 29 10.8 informa informa 2015 tion in tion in 8:04 AM source source data data Diff Observa Value Referen Units Interpr Notes Date tion ce etation Range Neutrop 2 0 - 10 % No No Oct 29 hils.ba informa informa 2015 nd tion in tion in 8:04 AM form/10 source source 0 data data leukocy anjel in Blood by Manual count Aniso Slight No No No No Oct 29 informa informa informa informa 2015 tion in tion in tion in tion in 8:04 AM source source source source data data data data Polychr Slight No No No No Oct 29 om informa informa informa informa 2015 tion in tion in tion in tion in 8:04 AM source source source source data data data data Red Blood Cells Request Observa Value Referen Units Interpr Notes Date tion ce etation Range Red Ready No No No No Apr 21 Blood informa informa informa informa 2015 Cells tion in tion in tion in tion in 6:04 PM Status source source source source data data data data DOA Screen Observa Value Referen Units Interpr Notes Date tion ce etation Range Cannabi Absent 50 No No No Apr 21 noid ng/mL informa informa informa 2015 Screen tion in tion in tion in 5:24 PM source source source data data data Benzodi Absent 200 No No No Apr 21 azepine ng/mL informa informa informa 2015 s tion in tion in tion in 5:24 PM Screen source source source data data data Cocaine Absent 150 No No No Apr 21 Screen ng/mL informa informa informa 2015 tion in tion in tion in 5:24 PM source source source data data data Opiate Absent 300 No No No Apr 21 300 ng/mL informa informa informa 2015 Screen tion in tion in tion in 5:24 PM source source source data data data Barbitu Absent 200 No No No Apr 21 rate ng/mL informa informa informa 2015 Screen tion in tion in tion in 5:24 PM source source source data data data Ampheta Absent 500 No No No Apr 21 mine ng/mL informa informa informa 2015 Screen tion in tion in tion in 5:24 PM source source source data data data Phencyc Absent 25 No No No Apr 21 lidine ng/mL informa informa informa 2015 Screen tion in tion in tion in 5:24 PM source source source data data data Methado Absent 300 No No No Apr 21 ne ng/mL informa informa informa 2015 Screen tion in tion in tion in 5:24 PM source source source data data data Oxycodo Absent 100 No No No Apr 21 ne ng/mL informa informa informa 2015 Screen tion in tion in tion in 5:24 PM source source source data data data 6 AM Absent 10 No No No Apr 21 (Heroin ng/mL informa informa informa 2015 ) tion in tion in tion in 5:24 PM Screen source source source data data data Bupreno Absent 5 ng/mL No No No Apr 21 rphine informa informa informa 2015 Screen tion in tion in tion in 5:24 PM source source source data data data Creatin 19.0 No mg/dL No \\.br\\Gr Oct 28 ine Ur informa informa eater 2014 tion in tion in than 5:24 PM source source 20: data data Consist ent with valid sample\\ .br\\Gre ater than 2 but less than 20: Possibl e dilutio n\\.br\\L ess than 2: Questio nable valid sample Procedu These No No No No Oct 28 re Note drug informa informa informa informa 2014 Screen classes tion in tion in tion in tion in 5:24 PM have source source source source been data data data data screene d by immunoa ssaenid and are for medical purpose s only. The results should not be used for non-med ical purpose s. If confirm ation is desired , please place a separat e order for each drug confirm ation. Specime ns will be saved for 3 busines s days should additio nal orders/ testing be desired . ABSC IgG Observa Value Referen Units Interpr Notes Date tion ce etation Range ABSC Negativ No No No No Oct 28 IgG Int e informa informa informa informa 2014 tion in tion in tion in tion in 4:56 PM source source source source data data data data ABORh Observa Value Referen Units Interpr Notes Date tion ce etation Range ABORh A POS No No No No Oct 28 Int informa informa informa informa 2014 tion in tion in tion in tion in 4:56 PM source source source source data data data data ALT Observa Value Referen Units Interpr Notes Date tion ce etation Range Alanine 28 <=41 IU/L No No Oct 28 informa informa 2014 aminotr tion in tion in 3:39 PM ansfera source source se data data [Enzyma tic activit y/volum e] in Serum or Plasma AST Observa Value Referen Units Interpr Notes Date tion ce etation Range ASPARTA 39 <=40 IU/L No No Oct 28 TE informa informa 2014 AMINOTR tion in tion in 3:39 PM ANSFERA source source SE data data Auto Diff Observa Value Referen Units Interpr Notes Date tion ce etation Range Neutrop 67.5 No % No No Oct 28 hils informa informa informa 2014 [#/volu tion in tion in tion in 3:06 PM me] in source source source Blood data data data by Automat ed count Lymphoc 25.2 No % No No Apr 21 ytes informa informa informa 2014 [#/volu tion in tion in tion in 3:06 PM me] in source source source Blood data data data by Automat ed count Monocyt 5.9 No % No No Apr 21 es informa informa informa 2014 [#/volu tion in tion in tion in 3:06 PM me] in source source source Blood data data data by Automat ed count Eos 0.7 No % No No Apr 21 Percent informa informa informa 2015 tion in tion in tion in 3:06 PM source source source data data data Baso 0.7 No % No No Oct 21 Percent informa informa informa 2015 tion in tion in tion in 3:06 PM source source source data data data Neut# 7.0 1.8 - x10(3)/ No No Oct 21 7.7 mcL informa informa 2014 tion in tion in 3:06 PM source source data data Lymph# 2.6 0.6 - x10(3)/ No No Oct 21 4.8 mcL informa informa 2015 tion in tion in 3:06 PM source source data data Walker# 0.6 0.0 - x10(3)/ No No Oct 21 1.3 mcL informa informa 2015 tion in tion in 3:06 PM source source data data Eos# 0.1 0.0 - x10(3)/ No No Apr 21 0.5 mcL informa informa 2014 tion in tion in 3:06 PM source source data data Baso# 0.1 0.0 - x10(3)/ No No Apr 21 0.2 mcL informa informa 2015 tion in tion in 3:06 PM source source data data CBC Observa Value Referen Units Interpr Notes Date tion ce etation Range LEUKOCY 10.3 4.0 - x10(3)/ No No Oct 21 ANJEL 11.0 mcL informa informa 2014 tion in tion in 3:06 PM source source data data Erythro 3.60 3.80 - x10(6)/ Low No Apr 21 cytes 5.10 mcL informa 2015 [#/volu tion in 3:06 PM me] in source Blood data by Automat ed count Hemoglo 12.0 12.0 - gm/dL No No Oct 28 bin 15.6 informa informa 2015 [Mass/v tion in tion in 3:06 PM olume] source source in data data Blood Hematoc 34.5 35.7 - % Low No Oct 28 rit 45.9 informa 2015 [Volume tion in 3:06 PM source Fractio data n] of Blood by Automat ed count Erythro 95.7 82.5 - fL No No Oct 28 cyte 99.8 informa informa 2015 mean tion in tion in 3:06 PM corpusc source source ular data data volume [Entiti c volume] by Automat ed count Erythro 33.4 27.0 - pg No No Oct 28 cyte 34.3 informa informa 2015 mean tion in tion in 3:06 PM corpusc source source ular data data hemoglo bin [Entiti c mass] by Automat ed count Erythro 34.9 32.1 - gm/dL No No Oct 28 cyte 35.3 informa informa 2015 mean tion in tion in 3:06 PM corpusc source source ular data data hemoglo bin concent ration [Mass/v olume] by Automat ed count Erythro 13.6 11.5 - % No No Oct 28 cyte 15.0 informa informa 2015 distrib tion in tion in 3:06 PM ution source source width data data [Ratio] by Automat ed count Platele 229 144 - x10(3)/ No No Oct 28 ts 423 mcL informa informa 2014 [#/volu tion in tion in 3:06 PM me] in source source Blood data data by Automat ed count MPV 10.8 6.8 - fL No No Oct 28 10.8 informa informa 2014 tion in tion in 3:06 PM source source data data Ur Prot/Crea Ratio Observa Value Referen Units Interpr Notes Date tion ce etation Range Urine 50.7 No mg/dL No No Oct 28 Protein informa informa informa 2015 tion in tion in tion in 3:54 PM source source source data data data Urine 100.6 No mg/dL No No Oct 28 Creatin informa informa informa 2014 ine tion in tion in tion in 3:54 PM source source source data data data Ur 0.50 <=0.14 mg/mg High No Oct 28 Protein informa 2014 /Creat tion in 3:54 PM source data PN US IVONNE WITH NST Observa Value Referen Units Interpr Notes Date tion ce etation Range Obstetr No No No No Oct 23 ic informa informa informa informa 2014 Ultraso tion in tion in tion in tion in und source source source source Report\\ data data data data .br\\Ant enatal Testing \\.br\\Re ferral from:\\. br\\SE[facility] are\\.br \\SEP [facility] [address]\\. br\\[address] [place] [address]\\. br\\[place] [address] Jack Frame Tender \\.br\\P omid: Reading Room \\.br\\F ax: [phone] Fax \\.br\\- ------- ------- ------- ------- ------- ------- ------- ------- ------- ------\\ .br\\PAT IENT INFORMA TION:\\. br\\Name : CHERRY OLMSTEAD MR#: [id number]\\.br\\A ge: 34 y/o Exam Date: 10/24/19 15\\.br\\ : [birth year] Visit #: 7\\.br\\L MP: 01/22/20 14 Locatio n: [facility]\\.br\\ [facility] are-- [facility] d\\.br\\# Fetuses : 1\\.br\\I NDICATI ON: Decreas ed movemen t, contrac tions\\. br\\---- ------- ------- ------- ------- ------- ------- ------- ------- ------- ---\\.br \\PHYSIC AL EXAM:\\. br\\Heig ht: 5' 2"\\.br\\ Pre-Pre gnancy Weight: 158 lbs.\\.b r\\Pre-P regnanc y BMI: 28.9 (Overwe ight)\\. br\\Curr ent Weight: 200 lbs.\\.b r\\Pulse : 99\\.br\\ Blood Pressur e 1: 143/84 Semi-Fo wlers\\. br\\Bloo d Pressur e 2: 141/79 Semi-Fo wlers\\. br\\MEDI LAKESHIA HISTORY :\\.br\\O ther/Co mments: Medicat ions: Zanax, Albuter ol,\\.br \\Proton ix, Phenerg an, Buspar, \\.br\\Se roquel, Flovent , Neuroti n,\\.br\\ Trazado ne, Tylenol 3 prn history of\\.br\\ PTD's @ 36 1/2 weeks (PROM) and 36\\.br\\ weeks (falied testing ) both emargen cy\\.br\\ c-secti ons, two miscarr iages\\. br\\---- ------- ------- ------- ------- ------- ------- ------- ------- ------- ---\\.br \\DATING :\\.br\\A ssigned GA\\.br\\ GA by LMP (17 wk us) ISABELL\\.br \\39 2/7 wks 36 4/7 wks 11/16/14 \\.br\\NE ESENTAT ION/COR D/PLACE NTA/CER VIX:\\.b r\\Prese ntation : Cephali c\\.br\\P lacenta : Anterio r. There Is No Evidenc e Of Placent a Previa. \\.br\\Gr jonh 2\\.br\\N ON STRESS TEST:\\. br\\Reac tive Baselin e FHR: 135 bpm, Normal\\ .br\\Snow iabilit y: Moderat e\\.br\\P attern: Normal\\ .br\\Fet al Kick-Co unt: Count Reinfor panda\\.br \\Acoust ic Stim: No\\.br\\ Contrac tions: Irregul ar\\.br\\ Status: Reassur ing\\.br \\AMNIOT IC FLUID VOLUME: \\.br\\NO RMAL Total IVONNE: 20.4 cm. Subject alexia AF Volume: \\.br\\No rmal. 77th percent ile. Maximum Vertica l\\.br\\P ocket: 8.5 cm\\.br\\ ------- ------- ------- ------- ------- ------- ------- ------- ------- ------- \\.br\\CO MMENTS: \\.br\\Fe david assessm ent begins at 1353 and ends at 1413. The patient \\.br\\de nies having pain. The domesti c violenc e screen is negativ e. The\\.br \\patien t does not have functio nal limitat ions. The patient has no\\.br\\ barrier s to educati on. The patient denies alcohol and illicit drug\\.b r\\use during pregnan cy. Medicat ions are reviewe d with no changes .\\.br\\A udible movemen ts are noted and movemen ts are perceiv ed\\.br\\ by the patient . The patient denies having headach e, visual\\ .br\\dis turbanc es, epigast kirsten pain, dizzine ss or swellin g. The signs\\. br\\and symptom s of labor, UTI, rupture of membran es and preecla mpsia\\. br\\were reviewe d. The kick count protoco l was reviewe d and the\\.br \\patien t verbali zeneda underst anding. Dr. Jackson notifie d of the\\.br \\patien t's complai nt of increas ed blood pressur e, and complai nt of\\.br\\ "leakin g of fluid", the patient is to schedul e an appoint ment for a\\.br\\r epeat blood pressur e and monitor any leaking with a pad. The\\.br \\michael muñiz has twice weekly testing schedul ed.\\.br \\The antenat al testing was perform ed by Brooke Sales RN.\\.br \\Electr onicall y signed by MADELYN\\. br\\LON LUNA M.D. on 10/24/19 15 at\\.br\\ 4:10 pm\\.br\\ ------- ------- ------- ------- ------\\ .br\\NICK PARISH M.D.\\.b r\\----- ------- ------- ------- ------- ------- ------- ------- ------- ------- --\\.br\\ Sonogra pher: Chelly Huitron , FRANSISCO PN US IVONNE WITH NST Observa Value Referen Units Interpr Notes Date tion ce etation Range Obstetr No No No No Apr 13 ic informa informa informa informa 2014 Ultraso tion in tion in tion in tion in und source source source source Report\\ data data data data .br\\Ant enatal Testing \\.br\\Re ferrsharron from:\\. br\\SEVEN [place] [facility] are\\.br \\SEP [facility] [address] [place] [address] Drive\\. br\\[address] [place] [address]\\. br\\[place] [address] Jack Frame Tender [phone]\\.br\\P omid: Reading Room \\.br\\F ax: Fax \\.br\\- ------- ------- ------- ------- ------- ------- ------- ------- ------- ------\\ .br\\PAT IENT INFORMA TION:\\. br\\Name : CHERRY OLMSTEAD MR#: [id number]\\.br\\A ge: 34 y/o Exam Date: 10/21/19 15\\.br\\ : [birth year] Visit #: 6\\.br\\L MP: 01/22/20 14 Locatio n: [facility] \\.br\\ Health are-- [facility]\\.br\\# Fetuses : 1\\.br\\I NDICATI ON: contrac tions\\. br\\---- ------- ------- ------- ------- ------- ------- ------- ------- ------- ---\\.br \\PHYSIC AL EXAM:\\. br\\Heig ht: 5' 2"\\.br\\ Pre-Pre gnancy Weight: 158 lbs.\\.b r\\Pre-P regnanc y BMI: 28.9 (Overwe ight)\\. br\\Curr ent Weight: 203 lbs.\\.b r\\Pulse : 99\\.br\\ Blood Pressur e 1: 123/65 Semi-Fo wlers\\. br\\MEDI LAKESHIA HISTORY :\\.br\\O ther/Co mments: Medicat ions: Zanax, Albuter ol,\\.br \\Proton ix, Phenerg an, Buspar, \\.br\\Se roquel, Flovent , Neuroti n,\\.br\\ Trazado ne, Tylenol 3 prn history of\\.br\\ PTD's @ 36 1/2 weeks (PROM) and 36\\.br\\ weeks (falied testing ) both emargen cy\\.br\\ c-secti ons, two miscarr iages\\. br\\---- ------- ------- ------- ------- ------- ------- ------- ------- ------- ---\\.br \\DATING :\\.br\\A ssigned GA\\.br\\ GA by LMP (17 wk us) ISABELL\\.br \\38 6/7 wks 36 1/7 wks 11/16/14 \\.br\\NE ESENTAT ION/COR D/PLACE NTA/CER VIX:\\.b r\\Prese ntation : Cephali c\\.br\\P lacenta : Anterio r. There Is No Evidenc e Of Placent a Previa. \\.br\\Gr jonh 2\\.br\\N ON STRESS TEST:\\. br\\Reac tive Baselin e FHR: 150 bpm, Normal\\ .br\\Snow iabilit y: Moderat e\\.br\\P attern: Acceler ations\\ .br\\Fet al Kick-Co unt: Count Reinfor panda\\.br \\Acoust ic Stim: No\\.br\\ Contrac tions: No\\.br\\ Status: Reassur ing\\.br \\AMNIOT IC FLUID VOLUME: \\.br\\NO RMAL Total IVONNE: 20.7 cm. Subject alexia AF Volume: \\.br\\No rmal. 78th percent ile. Maximum Vertica l\\.br\\P ocket: 8.4 cm\\.br\\ ------- ------- ------- ------- ------- ------- ------- ------- ------- ------- \\.br\\CO MMENTS: \\.br\\Fe david assessm ent begins at 08:54 and ends at 09:15.\\ .br\\The patient denies having pain. The domesti c violenc e screen is\\.br\\ negativ e. The patient does not have functio nal limitat ions. The\\.br \\patien t has no barrier s to educati on. The patient denies alcohol \\.br\\an d illicit drug use during pregnan cy. Medicat ions are reviewe d\\.br\\w ith no changes . Audible movemen ts are noted and \\. br\\move ments are perceiv ed by the patient . The patient denies having\\ .br\\hea dache, visual disturb ances, epigast kirsten pain, dizzine ss or\\.br\\ swellin g. The signs and symptom s of labor, UTI, rupture of\\.br\\ membran es and preecla mpsia were reviewe d. The kick count\\. br\\prot ocol was reviewe d and the patient verbali zed underst anding. \\.br\\Th e patient has twice weekly testing schedul ed.\\.br \\The antenat al testing was perform ed by Shannon Cerrato RN.\\.br \\ breathi ng motions , tone and gross body movemen ts were seen\\.b r\\dez g this exam.\\. br\\Than k you for this referra l.\\.br\\ Electro nically signed by LYNDA Landry\\.br\\ Paula GARCIA on 10/21/19 15 at 9:38\\.b r\\am\\.b r\\----- ------- ------- ------- ------- -\\.br\\Neda GARCIA M.D.\\.b r\\----- ------- ------- ------- ------- ------- ------- ------- ------- ------- --\\.br\\ Sonogra pher: Jacquie Jensen RDMS PN US IVONNE WITH NST Observa Value Referen Units Interpr Notes Date tion ce etation Range Obstetr No No No No Apr 6 ic informa informa informa informa 2014 Ultraso tion in tion in tion in tion in und source source source source Report\\ data data data data .br\\Ant enatal Testing \\.br\\Re ferral from:\\. br\\[facility] \\[facility] [address] [place] [address]\\. br\\[address] [facility] [place] [address]\\. br\\[place] [address] Jack Frame Tender \\.br\\P omid: Reading Room [phone]\\.br\\F ax: [phone] Fax \\.br\\- ------- ------- ------- ------- ------- ------- ------- ------- ------- ------\\ .br\\PAT IENT INFORMA TION:\\. br\\Name : CHERRY OLMSTEAD MR#: [id number]\\.br\\A ge: 34 y/o Exam Date: 5\\.br\\D OB: 02/21/19 82 Visit #: 5\\.br\\L MP: 01/22/20 14 [facility]\\.br\\ [facility] are-- [facility] d\\.br\\# Fetuses : 1\\.br\\I NDICATI ON: Decreas ed movemen t\\.br\\- ------- ------- ------- ------- ------- ------- ------- ------- ------- ------\\ .br\\PHY SICAL EXAM:\\. br\\Heig ht: 5' 2"\\.br\\ Pre-Pre gnancy Weight: 158 lbs.\\.b r\\Pre-P regnanc y BMI: 28.9 (Overwe ight)\\. br\\Curr ent Weight: 204 lbs.\\.b r\\Pulse : 95\\.br\\ Blood Pressur e 1: 136/79 Semi-Fo wlers\\. br\\Uter ine Tendern ess: No\\.br\\ MEDICAL HISTORY :\\.br\\O ther/Co mments: Medicat ions: Zanax, Albuter ol,\\.br \\Proton ix, Phenerg an, Buspar, \\.br\\Se roquel, Flovent , Neuroti n,\\.br\\ Trazado ne, Tylenol 3 prn history of\\.br\\ PTD's @ 36 1/2 weeks (PROM) and 36\\.br\\ weeks (falied testing ) both emargen cy\\.br\\ c-secti ons, two miscarr iages\\. br\\---- ------- ------- ------- ------- ------- ------- ------- ------- ------- ---\\.br \\DATING :\\.br\\A ssigned GA\\.br\\ GA by LMP (17 wk us) ISABELL\\.br \\37 6/7 wks 35 1/7 wks 11/16/14 \\.br\\NE ESENTAT ION/COR D/PLACE NTA/CER VIX:\\.b r\\Prese ntation : Cephali c\\.br\\P lacenta : Anterio r. There Is No Evidenc e Of Placent a Previa. \\.br\\Gr jonh 1\\.br\\N ON STRESS TEST:\\. br\\Reac tive Baselin e FHR: 130 bpm, Normal\\ .br\\Snow iabilit y: Moderat e\\.br\\P attern: Acceler ations\\ .br\\Fet al Kick-Co unt: Count Initiat ed\\.br\\ Acousti c Stim: No\\.br\\ Contrac tions: No\\.br\\ Status: Reassur ing\\.br \\AMNIOT IC FLUID VOLUME: \\.br\\NO RMAL Total IVONNE: 17.0 cm. Subject alexia AF Volume: \\.br\\No rmal. 62nd percent ile. Maximum Vertica l\\.br\\P ocket: 7.9 cm\\.br\\ ------- ------- ------- ------- ------- ------- ------- ------- ------- ------- \\.br\\CO MMENTS: \\.br\\Fe david assessm ent begins at 1130 and ends at 1150. The patient \\.br\\de nies having pain. The domesti c violenc e screen is negativ e. The\\.br \\patien t does not have functio nal limitat ions. The patient has no\\.br\\ barrier s to educati on. The patient denies alcohol and illicit drug\\.b r\\use during pregnan cy. Medicat ions are reviewe d with no changes .\\.br\\A udible movemen ts are noted and movemen ts are perceiv ed\\.br\\ by the patient . The patient denies having headach e, visual\\ .br\\dis turbanc es, epigast kirsten pain, dizzine ss or swellin g. The signs\\. br\\and symptom s of labor, UTI, rupture of membran es and preecla mpsia\\. br\\were reviewe d. The kick count protoco l was reviewe d and the\\.br \\patien t [facility] The patient has twice weekly\\ .br\\fet al testing schedul ed.\\.br \\The antenat al testing was perform ed by Christi Jules RN.\\.br \\Thank you for this referra l.\\.br\\ Electro nically signed by ALONSO HIDALGO\\. Paula arceo on 5 at 1:06 pm\\.br\\ ------- ------- ------- ------- ------\\ .brTIFFANY HIDALGO M.D.\\.b r\\----- ------- ------- ------- ------- ------- ------- ------- ------- ------- --Sergio.br\\ Sonogra pher: Steffanie Tadeo , RT, RDMS Gluc 3Hr Observa Value Referen Units Interpr Notes Date tion ce etation Range Gluc 3 104 No mg/dL No No Mar 18 Hour informa informa informa 2014 tion in tion in tion in 2:05 PM source source source data data data Gluc 2Hr Observa Value Referen Units Interpr Notes Date ti ce etation Range Gluc 2 138 No mg/dL No Referen Mar 18 Hour informa informa ce 2014 tion in tion in Range:\\ 2:06 PM source source .br\\\\.b data data r\\ Pregnan t (IADPSG /ADA)\\. br\\< 153 mg/dL\\. br\\\\.br \\Non-pr egnant\\ .br\\ < 140 mg/dL Normal\\ .br\\140 - 199 mg/dL Impaire d Glucose Toleran ce\\.br\\ >= 200 mg/dL Suggest alexia of Diabete s Gluc 1Hr Observa Value Referen Units Interpr Notes Date ti ce etation Range Gluc 1 113 No mg/dL No Referen Mar 18 Hour informa informa ce 2014 tion in tion in Range:\\ 12:02 source source .br\\\\.b PM data data r\\Pregn ant (IADPSG /ADA)\\. br\\ < 180 mg/dL\\. br\\\\.br \\Non-pr egnant\\ .br\\ N/A Diff Observa Value Referen Units Interpr Notes Date ti ce etation Range Neutrop 6 0 - 10 % No No Sep 18 hils.ba informa informa 2014 nd tion in tion in 11:19 form/10 source source AM 0 data data leukocy anjel in Blood by Manual count [place] 1 No % No No Sep 18 informa informa informa 2014 tion in tion in tion in 11:19 source source source AM data data data Myelo 3 No % No No Sep 18 informa informa informa 2014 tion in tion in tion in 11:19 source source source AM data data data Aniso Slight No No No No Sep 24 informa informa informa informa 2014 tion in tion in tion in tion in 11:19 source source source source AM data data data data Polychr Slight No No No No Sep 18 om informa informa informa informa 2014 tion in tion in tion in tion in 11:19 source source source source AM data data data data Auto Diff Observa Value Referen Units Interpr Notes Date tion ce etation Range Neutrop 76.4 No % No No Mar 18 hils informa informa informa 2014 [#/volu tion in tion in tion in 11:19 me] in source source source AM Blood data data data by Automat ed count Lymphoc 14.9 No % No No Mar 18 ytes informa informa informa 2014 [#/volu tion in tion in tion in 11:19 me] in source source source AM Blood data data data by Automat ed count Monocyt 7.7 No % No No Mar 18 es informa informa informa 2014 [#/volu tion in tion in tion in 11:19 me] in source source source AM Blood data data data by Automat ed count Eos 0.7 No % No No Mar 18 Percent informa informa informa 2014 tion in tion in tion in 11:19 source source source AM data data data Baso 0.3 No % No No Mar 18 Percent informa informa informa 2014 tion in tion in tion in 11:19 source source source AM data data data Neut# 12.4 1.8 - x10(3)/ High No Mar 18 7.7 mcL informa 2014 tion in 11:19 source AM data Lymph# 2.4 0.6 - x10(3)/ No No Mar 18 4.8 mcL informa informa 2014 tion in tion in 11:19 source source AM data data Walker# 1.2 0.0 - x10(3)/ No No Mar 18 1.3 mcL informa informa 2014 tion in tion in 11:19 source source AM data data Eos# 0.1 0.0 - x10(3)/ No No Mar 18 0.5 mcL informa informa 2014 tion in tion in 11:19 source source AM data data Baso# 0.0 0.0 - x10(3)/ No No Mar 18 0.2 mcL informa informa 2014 tion in tion in 11:19 source source AM data data CBC Observa Value Referen Units Interpr Notes Date tion ce etation Range LEUKOCY 16.2 4.0 - x10(3)/ High No Mar 18 ANJEL 11.0 mcL informa 2014 tion in 11:19 source AM data Erythro 3.70 3.80 - x10(6)/ Low No Sep 24 cytes 5.10 mcL informa 2014 [#/volu tion in 11:19 me] in source AM Blood data by Automat ed count Hemoglo 11.8 12.0 - gm/dL Low No Sep 24 bin 15.6 informa 2015 [Mass/v tion in 11:19 olume] source AM in data Blood Hematoc 35.5 35.7 - % Low No Sep 24 rit 45.9 informa 2015 [Volume tion in 11:19 source AM Fractio data n] of Blood by Automat ed count Erythro 95.8 82.5 - fL No Sep 24 cyte 99.8 informa informa 2015 mean tion in tion in 11:19 corpusc source source AM ular data data volume [Entiti c volume] by Automat ed count Erythro 31.9 27.0 - pg No Sep 24 cyte 34.3 informa informa 2014 mean tion in tion in 11:19 corpusc source source AM ular data data hemoglo bin [Entiti c mass] by Automat ed count Erythro 33.3 32.1 - gm/dL No Sep 24 cyte 35.3 informa informa 2015 mean tion in tion in 11:19 corpusc source source AM ular data data hemoglo bin concent ration [Mass/v olume] by Automat ed count Erythro 13.9 11.5 - % No Sep 24 cyte 15.0 informa informa 2014 distrib tion in tion in 11:19 ution source source AM width data data [Ratio] by Automat ed count Platele 264 144 - x10(3)/ No No Sep 24 ts 423 mcL informa informa 2014 [#/volu tion in tion in 11:19 me] in source source AM Blood data data by Automat ed count MPV 9.5 6.8 - fL No No Sep 24 10.8 informa informa 2015 tion in tion in 11:19 source source AM data data Gluc Base Observa Value Referen Units Interpr Notes Date tion ce etation Range Gluc 95 74 - mg/dL No Referen Sep 24 Baselin 100 informa ce 2014 e tion in Range:\\ 10:58 source .br\\\\.b AM data r\\Pregn ant (IADPSG /ADA)\\. br\\ < 92 mg/dL\\. br\\\\.br \\Non-pr egnant\\ .br\\ < 100 mg/dL Normal\\ .br\\110 - 125 mg/dL Impaire d Fasting Glucose \\.br\\ >= 126 mg/dL Suggest alexia of Diabete s DOA Screen Observa Value Referen Units Interpr Notes Date tion ce etation Range Cannabi Absent 50 No No No Mar 12 noid ng/mL informa informa informa 2015 Screen tion in tion in tion in 6:26 PM source source source data data data Benzodi Absent 200 No No No Mar 12 azepine ng/mL informa informa informa 2015 s tion in tion in tion in 6:26 PM Screen source source source data data data Cocaine Absent 150 No No No Mar 12 Screen ng/mL informa informa informa 2015 tion in tion in tion in 6:26 PM source source source data data data Opiate Absent 300 No No No Mar 12 300 ng/mL informa informa informa 2015 Screen tion in tion in tion in 6:26 PM source source source data data data Barbitu Absent 200 No No No Mar 12 rate ng/mL informa informa informa 2015 Screen tion in tion in tion in 6:26 PM source source source data data data Ampheta Absent 500 No No No Mar 12 mine ng/mL informa informa informa 2015 Screen tion in tion in tion in 6:26 PM source source source data data data Phencyc Absent 25 No No No Mar 12 lidine ng/mL informa informa informa 2014 Screen tion in tion in tion in 6:26 PM source source source data data data Methado Absent 300 No No No Mar 12 ne ng/mL informa informa informa 2015 Screen tion in tion in tion in 6:26 PM source source source data data data Oxycodo Absent 100 No No No Mar 12 ne ng/mL informa informa informa 2015 Screen tion in tion in tion in 6:26 PM source source source data data data 6 AM Absent 10 No No No Mar 12 (Heroin ng/mL informa informa informa 2014 ) tion in tion in tion in 6:26 PM Screen source source source data data data Bupreno Absent 5 ng/mL No No No Sep 18 rphine informa informa informa 2014 Screen tion in tion in ti in 6:26 PM source source source data data data Creatin 50.0 No mg/dL No \\.br\\Gr Sep 18 ine Ur informa informa eater 2014 tion in ti in than 6:26 PM source source 20: data data Consist ent with valid sample\\ .br\\Gre ater than 2 but less than 20: Possibl e dilutio n\\.br\\L ess than 2: Questio nable valid sample Procedu These No No No No Sep 18 re Note drug informa informa informa informa 2014 Screen classes tion in tion in tion in ti in 6:26 PM have source source source source been data data data data screene d by immunovi santos and are for medical purpose s only. The results should not be used for non-med ical purpose s. If confirm ation is desired , please place a separat e order for each drug confirm ation. Specime ns will be saved for 3 s days should additio nal orders/ testing be desired . UA Observa Value Referen Units Interpr Notes Date tion ce etation Range UA Yellow No No No No Sep 18 Color informa informa informa informa 2014 tion in ti in tion in ti in 6:09 PM source source source source data data data data UA Hazy Clear No Abnorma No Sep 18 Appear informa l informa 2014 tion in in 6:09 PM source source data data UA Negativ Negativ No No No Sep 18 Glucose e e informa informa informa 2014 tion in ti in ti in 6:09 PM source source source data data data UA Negativ Negativ No No No Sep 18 Ketones e e informa informa informa 2014 tion in ti in ti in 6:09 PM source source source data data data UA Negativ Negativ No No No Sep 18 Blood e e informa informa informa 2014 tion in ti in ti in 6:09 PM source source source data data data UA pH 7.5 4.8 - No No Referen Sep 18 8.0 informa informa ce 2015 tion in tion in range 6:09 PM source source valid data data for random specime ns only. UA Trace Negativ No Abnorma No Sep 18 Protein e informa l informa 2014 tion in tion in 6:09 PM source source data data UA Normal <=1 No No No Sep 18 Urobili mg/dl informa informa informa 2014 nogen tion in tion in tion in 6:09 PM source source source data data data UA Negativ Negativ No No No Sep 18 Nitrite e e informa informa informa 2014 tion in tion in tion in 6:09 PM source source source data data data UA Leuk Negativ Negativ No No No Sep 18 Est e e informa informa informa 2014 tion in tion in tion in 6:09 PM source source source data data data UA Spec 1.012 1.001 - No No Referen Sep 18 Grav 1.035 informa informa ce 2014 tion in tion in range 6:09 PM source source valid data data for random specime ns only. UA 4+ No No No No Sep 18 Squam informa informa informa informa 2014 Epi tion in tion in tion in tion in 6:09 PM source source source source data data data data UA Trace No No No No Sep 18 Mucous informa informa informa informa 2014 tion in tion in tion in tion in 6:09 PM source source source source data data data data PN US Cervical Length w limited Observa Value Referen Units Interpr Notes Date tion ce etation Range Obstetr No No No No Sep 18 ic informa informa informa informa 2014 Ultraso tion in tion in tion in tion in und source source source source Report\\ data data data data .br\\Ant enatal Testing \\.br\\Re ferral from:\\. br\\TINY USONG CAMARILLO ER, DO [facility] are\\.br \\([place]leana parks)\\.b r\\SEP [facility] [address] [place] [address] Drive\\. br\\[address] [facility] [place] [address]\\. br\\[address] \\.br\\[facility] [place] [place] [address] Reading Room \\.br\\P omid: Fax \\.br\\F ax: \\.br\\- ------- ------- ------- ------- ------- ------- ------- ------- ------- ------\\ .br\\PAT IENT INFORMA TION:\\. br\\Name : CHERRY OLMSTEAD MR#: [id number]\\.br\\A ge: 34 y/o Exam Date: 09/19/19\\.br\\ : [birth year] Visit #: 4\\.br\\L MP: 01/22/20 14 Locatio n: [facility] \\.br\\ [facility] are-- [facility] d\\.br\\# Fetuses : 1\\.br\\I NDICATI ON: contrac tions, cervica l length, triage patient \\.br\\-- ------- ------- ------- ------- ------- ------- ------- ------- ------- -----\\. br\\PHYS ICAL EXAM:\\. br\\Heig ht: 5' 2"\\.br\\ Pre-Pre gnancy Weight: 158 lbs.\\.b r\\Pre-P regnanc y BMI: 28.9 (Overwe ight)\\. br\\Curr ent Weight: 200 lbs.\\.b r\\MEDIC AL HISTORY :\\.br\\O ther/Co mments: Medicat ions: Zanax, Albuter ol,\\.br \\Proton ix, Phenerg an, Buspar, \\.br\\Se roquel, Flovent , Neuroti n,\\.br\\ Trazado ne, Tylenol 3 prn history of\\.br\\ PTD's @ 36 1/2 weeks (PROM) and 36\\.br\\ weeks (falied testing ) both emargen cy\\.br\\ c-secti ons, two miscarr iages\\. br\\---- ------- ------- ------- ------- ------- ------- ------- ------- ------- ---\\.br \\DATING :\\.br\\A ssigned GA\\.br\\ GA by LMP (17 wk us) ISABELL\\.br \\34 2/7 wks 31 4/7 wks 11/16/14 \\.br\\NE ESENTAT ION/COR D/PLACE NTA/CER VIX:\\.b r\\Prese ntation : Breech\\ .br\\Nestor centa: Anterio r. There Is No Evidenc e Of Placent a Previa. \\.br\\Gr jonh 1\\.br\\C ervix: Overall Length: 30mm, Normal\\ .br\\AMN IOTIC FLUID VOLUME: \\.br\\NO RMAL Total IVONNE: 20.6 cm. Subject alexia AF Volume: \\.br\\No rmal. 80th percent ile. Maximum Vertica l\\.br\\P ocket: 8.9 cm\\.br\\ ------- ------- ------- ------- ------- ------- ------- ------- ------- ------- \\.br\\CO MMENTS: \\.br\\Th e fetus is in a breech present ation. The placent a is anterio r,\\.br\\ grade 1. The amnioti c fluid is normal. movemen t and cardiac \\.br\\ac tivity are seen.\\. br\\The cervix measure s 3.0 cm with no evidenc e of funneli ng or\\.br\\ dilatio n.\\.br\\ The patient is in Triage and a prelimi nary report was sent with the\\.br \\patien t in her chart. Dr. Camarillo er was provide d a verbal report. \\.br\\Th ank you for this referra colvin\\.br\\ Electro nically signed by LYNDA Landry\\.br\\ Paula GARCIA on 09/19/19 15 at 7:58\\.b r\\pm\\.b r\\----- ------- ------- ------- ------- -\\.br\\D CADEN GARCIA M.D.\\.b r\\----- ------- ------- ------- ------- ------- ------- ------- ------- ------- --\\.br\\ Sonogra pher: Jacquie Jensen, RDMS Preg Scrn Observa Value Referen Units Interpr Notes Date tion ce etation Range Preg 159 No mg/dL No No Sep 3 Screen informa informa informa 2014 tion in tion in tion in 11:49 source source source AM data data data US RIGHT UPPER QUADRANT Observa Value Referen Units Interpr Notes Date tion ce etation Range PROCEDU No No No No Sep 3 RE: informa informa informa informa 2014 Right tion in tion in tion in tion in 9:01 AM upper source source source source quadran data data data data t ultraso und, 5.\\.br\\ \\.br\\IN DICATIO N: Right upper quadran t pain. History pancrea titis. Patient is 30\\.br\\ weeks pregnan t.\\.br\\ \\.br\\FI NDINGS: right upper quadran t ultraso und. Gallbla dder surgica lly absent. \\.br\\Th ere is mild\\.b r\\incre ased echogen icity in the liver which could represe nt mild diffuse \\.br\\he patic steatos is. The\\.br \\intrah epatic bile duct is slightl y promine nt. The common bile duct is\\.br\\ normal caliber measuri ng\\.br\\ less than 5 mm. Visuali zed pancrea s is sonogra phicall y normal. There is no\\.br\\ hydrone phrosis in\\.br\\ the right kidney. \\.br\\\\. br\\IMPR ESSION: Previou s cholecy stectom y. Probabl e mild hepatic steatos is.\\.br \\Border line promine nce of\\.br\\ intrahe patic bile ducts with normal caliber common bile duct. Otherwi se\\.br\\ negativ e. Lipid Scr Observa Value Referen Units Interpr Notes Date tion ce etation Range Cholest 148 <=200 mg/dL No < 200 Sep 09 chica informa 2014 [Percen tion in 7:18 AM tile] source Desirab data le\\.br\\ 200 - 239 Borderl ine High\\.b r\\>= 240 High TRIGLYC 271 <=150 mg/dL High < 150 Sep 09 ERIDES. 2015 TOTAL Normal\\ 7:18 AM .br\\150 - 199 Borderl ine High\\.b r\\200 - 499 High\\.b r\\ >= 500 Very High CHOLEST 34 >=40 mg/dL Low > 60 Sep 09 EROLS.I 2014 N HDL Optimal 7:18 AM \\.br\\40 - 60 Accepta ble\\.br \\ < 40 Low LDL 60 <=100 mg/dL No < 100 Sep 09 Calcula informa 2015 jones tion in 7:18 AM source Optimal data \\.br\\10 0 - 129 Near or above optimal \\.br\\13 0 - 159 Borderl ine High\\.b r\\160 - 189 High\\.b r\\ >= 190 Very High Glu Bed Observa Value Referen Units Interpr Notes Date tion ce etation Range GLU BED 78 70 - mg/dL No No Mar 2 100 informa informa 2015 tion in tion in 8:51 PM source source data data HCV Valerie-SOLS Observa Value Referen Units Interpr Notes Date tion ce etation Range Hepatit 3 No No No Test Sep 5 is C informa informa informa Methodo 2015 Virus tion in tion in tion in logy: 1:33 PM Genotyp source source source Do e-SOLS data data data RealTim e HCV Genotyp e II Assay.\\ .br\\Per formed at: [facility]\\.br\\ [address], [address]\\.br \\ [place] [address] HCV QT GR-SOLS Observa Value Referen Units Interpr Notes Date tion ce etation Range HCV RNA [id number] <15 IU/mL High No Sep 4 informa 2014 Quant-S tion in 7:12 PM OLS source data HCV RNA 6.20 <1.18 No High \\.br\\Sep 10 informa is test 2014 Log-CAROLINA tion in 7:12 PM S source utilize data s the [place] FDA approve d Hilaria HCV Test Kit by RT-PCR. \\.br\\Pe rformed at: [facility]\\.br\\ [address] [facility] [address], [address]\\.br \\ [place] [address] JAMEL Scn Observa Value Referen Units Interpr Notes Date tion ce etation Range JAMEL Negativ No No No JAMEL Sep 09 Screen e informa informa informa samples 2014 tion in tion in tion in are 9:24 AM source source source screene data data data d using an automat ed EIA assay. All samples that\\.b r\\scree n positiv e are titered by an IFA method and will include an JAMEL pattern .\\.br\\A titer of < 1:80 is conside red clinica lly insigni ficant. In general , a titer\\. br\\>= 1:160 is conside red signifi cant positiv e. IgG Observa Value Referen Units Interpr Notes Date tion ce etation Range IgG 506 700 - mg/dL Low No Sep 2 1600 informa 2014 tion in 5:00 PM source data Glu Bed Observa Value Referen Units Interpr Notes Date tion ce etation Range GLU BED 129 70 - mg/dL High No Sep 2 100 informa 2015 tion in 1:08 PM source data Hemogram Observa Value Referen Units Interpr Notes Date tion ce etation Range LEUKOCY 12.3 4.0 - x10(3)/ High No Sep 2 ANJEL 11.0 mcL informa 2014 tion in 7:29 AM source data Erythro 3.48 3.80 - x10(6)/ Low No Sep 2 cytes 5.10 mcL informa 2014 [#/volu tion in 7:29 AM me] in source Blood data by Automat ed count Hemoglo 11.1 12.0 - gm/dL Low No Sep 2 bin 15.6 informa 2015 [Mass/v tion in 7:29 AM olume] source in data Blood Hematoc 33.3 35.7 - % Low No Sep 2 rit 45.9 informa 2015 [Volume tion in 7:29 AM source Fractio data n] of Blood by Automat ed count Erythro 95.7 82.5 - fL No No Sep 2 cyte 99.8 informa informa 2015 mean tion in tion in 7:29 AM corpusc source source ular data data volume [Entiti c volume] by Automat ed count Erythro 31.9 27.0 - pg No No Sep 2 cyte 34.3 informa informa 2015 mean tion in tion in 7:29 AM corpusc source source ular data data hemoglo bin [Entiti c mass] by Automat ed count Erythro 33.3 32.1 - gm/dL No No Sep 2 cyte 35.3 informa informa 2015 mean tion in tion in 7:29 AM corpusc source source ular data data hemoglo bin concent ration [Mass/v olume] by Automat ed count Erythro 13.6 11.5 - % No No Sep 2 cyte 15.0 informa informa 2015 distrib tion in tion in 7:29 AM ution source source width data data [Ratio] by Automat ed count Platele 240 144 - x10(3)/ No No Mar 2 ts 423 mcL informa informa 2015 [#/volu tion in tion in 7:29 AM me] in source source Blood data data by Automat ed count MPV 9.4 6.8 - fL No No Sep 2 10.8 informa informa 2015 tion in tion in 7:29 AM source source data data DOA Screen Observa Value Referen Units Interpr Notes Date tion ce etation Range Cannabi Absent 50 No No No Mar 1 noid ng/mL informa informa informa 2015 Screen tion in tion in tion in 7:38 PM source source source data data data Benzodi Absent 200 No No No Mar 1 azepine ng/mL informa informa informa 2015 s tion in tion in tion in 7:38 PM Screen source source source data data data Cocaine Absent 150 No No No Mar 1 Screen ng/mL informa informa informa 2015 tion in tion in tion in 7:38 PM source source source data data data Opiate Absent 300 No No No Mar 1 300 ng/mL informa informa informa 2015 Screen tion in tion in tion in 7:38 PM source source source data data data Barbitu Presump 200 No Abnorma No Mar 1 rate tive ng/mL informa l informa 2015 Screen Pos tion in tion in 7:38 PM source source data data Ampheta Absent 500 No No No Mar 1 mine ng/mL informa informa informa 2015 Screen tion in tion in tion in 7:38 PM source source source data data data Phencyc Absent 25 No No No Mar 1 lidine ng/mL informa informa informa 2015 Screen tion in tion in tion in 7:38 PM source source source data data data Methado Absent 300 No No No Mar 1 ne ng/mL informa informa informa 2015 Screen tion in tion in tion in 7:38 PM source source source data data data Oxycodo Absent 100 No No No Mar 1 ne ng/mL informa informa informa 2015 Screen tion in tion in tion in 7:38 PM source source source data data data 6 AM Absent 10 No No No Mar 1 (Heroin ng/mL informa informa informa 2014 ) tion in tion in tion in 7:38 PM Screen source source source data data data Bupreno Absent 5 ng/mL No No No Mar 1 rphine informa informa informa 2015 Screen tion in tion in tion in 7:38 PM source source source data data data Creatin 183.0 No mg/dL No \\.br\\Gr Mar 1 ine Ur informa informa eater 2015 tion in tion in than 7:38 PM source source 20: data data Consist ent with valid sample\\ .br\\Gre ater than 2 but less than 20: Possibl e dilutio n\\.br\\L ess than 2: Questio nable valid sample Procedu These No No No No Mar 1 re Note drug informa informa informa informa 2015 Screen classes tion in tion in tion in tion in 7:38 PM have source source source source been data data data data screene d by immunoa ssay and are for medical purpose s only. The results should not be used for non-med ical purpose s. If confirm ation is desired , please place a separat e order for each drug confirm ation. Specime ns will be saved for 3 s days should additio nal orders/ testing be desired . Lipase Observa Value Referen Units Interpr Notes Date tion ce etation Range Lipase 29 13 - 60 IU/L No New Mar 1 Lvl informa referen 2014 tion in ce 8:29 PM source range data is signifi cantly differe nt from previou s. Amylase Observa Value Referen Units Interpr Notes Date tion ce etation Range AMYLASE 62 28 - IU/L No No Sep 1 .TOTAL 100 informa informa 2015 tion in tion in 8:29 PM source source data data CMP Observa Value Referen Units Interpr Notes Date tion ce etation Range Sodium 140 136 - mmol/L No No Sep 07 145 informa informa 2015 tion in tion in 6:24 PM source source data data Potassi 4.7 3.5 - mmol/L No No Sep 07 um 5.0 informa informa 2014 [Moles/ tion in tion in 6:24 PM volume] source source in data data Serum or Plasma Chlorid 101 98 - mmol/L No No Sep 1 e 107 informa informa 2014 tion in tion in 6:24 PM source source data data Carbon 24 22 - 29 mmol/L No No Sep 1 dioxide informa informa 2015 , total tion in tion in 6:24 PM source source [Moles/ data data volume] in Serum or Plasma Anion 15 7 - 16 mmol/L No No Sep 1 Gap informa informa 2015 tion in tion in 6:24 PM source source data data CALCIUM 9.4 8.6 - mg/dL No No Sep 07 .TOTAL 10.2 informa informa 2015 tion in tion in 6:24 PM source source data data Glucose 84 74 - mg/dL No No Sep 07 Lvl 100 informa informa 2015 tion in tion in 6:24 PM source source data data BUN 17 6 - 20 mg/dL No No Sep 07 informa informa 2015 tion in tion in 6:24 PM source source data data Creatin 1.17 0.51 - mg/dL No No Mar 1 ine 1.30 informa informa 2015 tion in tion in 6:24 PM source source data data Albumin 3.9 3.5 - gm/dL No No Sep 07 5.2 informa informa 2014 [Mass/v tion in tion in 6:24 PM olume] source source in data data Serum or Plasma Protein 6.4 6.4 - gm/dL No No Sep 07 8.3 informa informa 2014 [Mass/v tion in tion in 6:24 PM olume] source source in data data Serum or Plasma Bilirub 0.2 0.1 - mg/dL No No Sep 07 in.tota 1.3 informa informa 2014 l tion in tion in 6:24 PM [Mass/v source source olume] data data in Serum or Plasma ASPARTA 20 <=40 IU/L No No Sep 07 TE informa informa 2015 AMINOTR tion in tion in 6:24 PM ANSFERA source source SE data data Alanine 21 <=41 IU/L No No Sep 07 informa informa 2015 aminotr tion in tion in 6:24 PM ansfera source source se data data [Enzyma tic activit y/volum e] in Serum or Plasma Alkalin 124 35 - IU/L High No Sep 07 e 104 informa 2014 phospha tion in 6:24 PM tase source [Enzyma data tic activit y/volum e] in Serum or Plasma GFR Non 54 No No No No Sep 07 Afr Am informa informa informa informa 2015 tion in tion in tion in tion in 6:24 PM source source source source data data data data Hemogram Observa Value Referen Units Interpr Notes Date tion ce etation Range LEUKOCY 13.9 4.0 - x10(3)/ High No Sep 07 ANJEL 11.0 mcL informa 2014 tion in 5:52 PM source data Erythro 3.94 3.80 - x10(6)/ No No Sep 07 cytes 5.10 mcL informa informa 2014 [#/volu tion in tion in 5:52 PM me] in source source Blood data data by Automat ed count Hemoglo 12.4 12.0 - gm/dL No No Sep 07 bin 15.6 informa informa 2014 [Mass/v tion in tion in 5:52 PM olume] source source in data data Blood Hematoc 37.5 35.7 - % No No Sep 07 rit 45.9 informa informa 2014 [Volume tion in tion in 5:52 PM source source Fractio data data n] of Blood by Automat ed count Erythro 95.1 82.5 - fL No No Sep 07 cyte 99.8 informa informa 2015 mean tion in tion in 5:52 PM corpusc source source ular data data volume [Entiti c volume] by Automat ed count Erythro 31.5 27.0 - pg No No Sep 07 cyte 34.3 informa informa 2015 mean tion in tion in 5:52 PM corpusc source source ular data data hemoglo bin [Entiti c mass] by Automat ed count Erythro 33.1 32.1 - gm/dL No No Sep 07 cyte 35.3 informa informa 2015 mean tion in tion in 5:52 PM corpusc source source ular data data hemoglo bin concent ration [Mass/v olume] by Automat ed count Erythro 13.5 11.5 - % No No Sep 07 cyte 15.0 informa informa 2015 distrib tion in tion in 5:52 PM ution source source width data data [Ratio] by Automat ed count Platele 305 144 - x10(3)/ No No Sep 07 ts 423 mcL informa informa 2014 [#/volu tion in tion in 5:52 PM me] in source source Blood data data by Automat ed count MPV 9.7 6.8 - fL No No Sep 07 10.8 informa informa 2015 tion in tion in 5:52 PM source source data data UA Observa Value Referen Units Interpr Notes Date tion ce etation Range UA Yellow No No No No Sep 07 Color informa informa informa informa 2015 tion in tion in tion in tion in 5:30 PM source source source source data data data data UA Hazy Clear No Abnorma No Sep 07 Appear informa l informa 2015 tion in tion in 5:30 PM source source data data UA Negativ Negativ No No No Sep 07 Glucose e e informa informa informa 2015 tion in tion in tion in 5:30 PM source source source data data data UA Negativ Negativ No No No Sep 1 Ketones e e informa informa informa 2014 tion in tion in tion in 5:30 PM source source source data data data UA Negativ Negativ No No No Sep 1 Blood e e informa informa informa 2014 tion in tion in tion in 5:30 PM source source source data data data UA pH 5.5 4.8 - No No Referen Sep 07 8.0 informa informa ce 2014 tion in tion in range 5:30 PM source source valid data data for random specime ns only. UA 100 Negativ No Abnorma No Sep 07 Protein mg/dl e informa l informa 2014 tion in tion in 5:30 PM source source data data UA Normal <=1 No No No Sep 1 Urobili mg/dl informa informa informa 2015 nogen tion in tion in tion in 5:30 PM source source source data data data UA Negativ Negativ No No No Sep 07 Nitrite e e informa informa informa 2015 tion in tion in tion in 5:30 PM source source source data data data UA Leuk Negativ Negativ No No No Sep 07 Est e e informa informa informa 2015 tion in tion in tion in 5:30 PM source source source data data data UA Spec 1.033 1.001 - No No Referen Sep 07 Grav 1.035 informa informa ce 2014 tion in tion in range 5:30 PM source source valid data data for random specime ns only. UA WBC 9 0 - 4 /HPF High No Sep 07 informa 2015 tion in 5:30 PM source data UA RBC 2 0 - 3 /HPF No No Sep 07 informa informa 2015 tion in tion in 5:30 PM source source data data UA 4+ No No No No Sep 1 Squam informa informa informa informa 2015 Epi tion in tion in tion in tion in 5:30 PM source source source source data data data data UA Trace No No No No Sep 1 Mucous informa informa informa informa 2015 tion in tion in tion in tion in 5:30 PM source source source source data data data data UA 1+ No No Abnorma No Sep 07 Bacteri informa informa l informa 2015 a tion in tion in tion in 5:30 PM source source source data data data PN US BPP without NST W follow up Observa Value Referen Units Interpr Notes Date tion ce etation Range Obstetr No No No No Mar 1 ic informa informa informa informa 2014 Ultraso tion in tion in tion in tion in und source source source source Report\\ data data data data .br\\Det tamia Survey\\ .br\\Ref erral from:\\. br\\SEVEN ISSA [facility] are\\.br \\SEP [facility] [address]\\. br\\[address] [place] [address]\\. br\\[place] [address] [address] [employer] \\.br\\P omid: Reading Room \\.br\\F ax: [phone] Fax \\.br\\- ------- ------- ------- ------- ------- ------- ------- ------- ------- ------\\ .br\\PAT IENT INFORMA TION:\\. br\\Name : CHERRY OLMSTEAD MR#: [id number]\\.br\\A ge: 34 y/o Exam Date: 5\\.br\\D OB: 02/21/19 82 Visit #: 3\\.br\\L MP: 01/22/20 14 Locatio n: [facility]\\.br\\ [facility] are-- [facility] d\\.br\\# Fetuses : 1\\.br\\I NDICATI ON: Abdomin al pain, contrac ing, patient fell 2 weeks ago\\.br \\------ ------- ------- ------- ------- ------- ------- ------- ------- ------- -\\.br\\D ATING:\\ .br\\Ass igned GA\\.br\\ GA by LMP GA by US (17 wk us) ISABELL\\.br \\32 5/7 wks 31 4/7 wks 30 0/7 wks 15 \\.br\\BI OMETRY: \\.br\\BP D: 77.8 mm 31 2/7 wks HC: 291.9 mm 32 1/7 wks\\.br \\(64%) (70%)\\. br\\Femu r: 59.9 mm 31 1/7 wks AC: 300.9 mm 34 0/7 wks\\.br \\(65%) (>97%)\\ .br\\HC/ AC: 0.97 (0.99 -1.21)\\ .br\\EFW : 2045 gms 4 lbs 8 oz\\.br\\ (84%)\\. br\\Lat Ventric les: R-7.5 mm Cerebel lum: 39.3 mm (\\.br\\C isterna Magna: 8.5 mm Heart Rate: 139 bpm\\.br \\FL/AC: 0.2 HL/BPD: 0.7\\.br \\FL/BPD : 0.77 Humerus : 55.1 mm 3\\.br\\0 /7 (86%)\\. br\\PRES ENTATIO N/CORD/ PLACENT A/FLUID /CERVIX :\\.br\\P resenta tion: Transve rse, spine down, head left\\.b r\\Umbil ical Cord: 3 Vessel Cord. Normal inserti on into the placent a.\\.br\\ Placent a: Anterio r, Left. There Is No Evidenc e Of Placent a\\.br\\P revia. Grade 1\\.br\\A mniotic Fluid: Maximum Vertica l Pocket = 5.3 cm. Subject alexia AF\\.br\\ Volume: Normal. (IVONNE=17 .9 cm)\\.br \\ ANATOMI LAKESHIA SURVEY: \\.br\\No rmal\\.b r\\----- -\\.br\\C alvariu m Intracr anial Anatomy \\.br\\La teral Ventric les Cerebel lum\\.br \\Choroi d Plexus Cistern a Magna\\. br\\Midl ine Falx Cavum Septum Pelluci dum\\.br \\Profil e Orbits\\ .br\\Fac e Nose\\.b r\\Lips Thoraci c Spine\\. br\\Lumb ar Spine Four Chamber View\\.b r\\Three Vessel View Cardiac Dyer\\.b r\\Cardi ac Positio n Heart Rate\\.b r\\Lungs Diaphra gm\\.br\\ IVC SVC\\.br \\Ventra l Wall Stomach \\.br\\Ki dney - Left Kidney - Right\\. br\\Blad simon Bowel\\. br\\Grace darby Humerus - Left\\.b r\\Humer us - Right Forearm - Left\\.b r\\Forea rm - Right Hand - Left\\.b r\\Hand - Right Fingers - Left\\.b r\\Femur - Left Femur - Right\\. br\\Lowe r Leg - Left Lower Leg - Right\\. br\\Subo ptimal\\ .br\\--- ------- \\.br\\Ce rvical Spine Sacrum\\ .br\\RVO T LVOT\\.b r\\Ankle - Left Ankle - Right\\. br\\Foot - Left Foot - Right\\. br\\Not Visuali zed\\.br \\------ ------- -\\.br\\A ortic Arch Ductal Arch\\.b r\\Finge rs - Right Toes - Left\\.b r\\Toes - Right\\. br\\Abno rmal\\.b r\\----- ---\\.br \\None identif ied\\.br \\SIGNAL ENGINEER FINDING S:\\.br\\ Uterus: Normal\\ .br\\Ova sherwin: Left: Normal - 31 x 31 x 23 mm.\\.br \\Right: Not Seen\\.b r\\Cul-D e-Sac: No free fluid noted in the Cul-de- sac.\\.b r\\ADNEX AL FINDING S:\\.br\\ Adnexal mass was not noted.\\ .br\\EFW Summary Table\\. br\\Exam Date Fetus # EFW Percent ile\\.br \\------ --- ------- ---- ------- ---\\.br \\09/07/14 1 2044 84 %\\.br\\1 08/28/13 1 345\\.br \\ 4 1 222\\.br \\AMNIOT IC FLUID VOLUME: \\.br\\NO RMAL Total IVONNE: 17.9 cm. Subject alexia AF Volume: \\.br\\No rmal. 67th percent ile. Maximum Vertica l\\.br\\P ocket: 5.3 cm\\.br\\ BIOPHYS ICAL PROFILE :\\.br\\6 out of 8 0 Points for: Breathi ng. 2 Points for: Tone,\\. br\\Move ment, Amnioti c Fluid.\\ .br\\CER VIX: Visuali zed\\.br \\------ ------- ------- ------- ------- ------- ------- ------- ------- ------- -\\.br\\C OMMENTS :\\.br\\V isualiz ation of anatomy is limited by subopti mal \\. br\\posi tion.\\. br\\The biometr ic measure ments are consist ent with the\\.br \\gestat ional age establi shed by a prior ultraso und perform ed at .\\.br \\[facility] are. The abdomin al circumf erence is at the 97%.\\.b r\\The amnioti c fluid volume is normal. \\.br\\No gross anatomi c anomali es are identif ied, althoug h some\\.b r\\porti ons of the anatomi c survey are limited .\\.br\\T here is no sonogra phic evidenc e of a placent al abrupti on seen.\\. br\\The BPP is 6/8 (off for no breathi ng).\\.b r\\The materna l left ovary appears normal and the right ovary was not\\.br \\visual ized due to overlyi ng bowel gas.\\.b r\\Recom mend screeni ng for gestati onal diabete s if not perform ed in\\.br\\ the last 4 weeks seconda ry to the abdomin al circumf erence at the\\.br \\97th percent ile. Conside r a growth ultraso und in 4 weeks.\\ .br\\The patient is current ly in Triage. A verbal report was provide d\\.br\\t o Dr. Issa. \\.br\\Pravin orozcoosmar castle signed by LAURIE Lebron\\.br\\Cecile SPARKS M.D. on 5 at 9:24 pm\\.br\\ ------- ------- ------- ------- ------\\ .br\\ANTIONETTE THACKER M.D.\\.b r\\----- ------- ------- ------- ------- \\.br\\So nograph er: Elizabeth Cordova, FRANSISCO DOA Screen Observa Value Referen Units Interpr Notes Date tion ce etation Range Cannabi Absent 50 No No No Feb 4 noid ng/mL informa informa informa 2015 Screen tion in tion in tion in 6:34 AM source source source data data data Benzodi Presump 200 No Abnorma No Feb 4 azepine tive ng/mL informa l informa 2015 s Pos tion in tion in 6:34 AM Screen source source data data Cocaine Absent 150 No No No Feb 4 Screen ng/mL informa informa informa 2015 tion in tion in tion in 6:34 AM source source source data data data Opiate Absent 300 No No No Feb 4 300 ng/mL informa informa informa 2015 Screen tion in tion in tion in 6:34 AM source source source data data data Barbitu Presump 200 No Abnorma No Feb 4 rate tive ng/mL informa l informa 2015 Screen Pos tion in tion in 6:34 AM source source data data Ampheta Absent 500 No No No Feb 4 mine ng/mL informa informa informa 2015 Screen tion in tion in tion in 6:34 AM source source source data data data Phencyc Absent 25 No No No Feb 4 lidine ng/mL informa informa informa 2015 Screen tion in tion in tion in 6:34 AM source source source data data data Methado Absent 300 No No No Feb 4 ne ng/mL informa informa informa 2014 Screen tion in tion in tion in 6:34 AM source source source data data data Oxycodo Absent 100 No No No Feb 4 ne ng/mL informa informa informa 2014 Screen tion in tion in tion in 6:34 AM source source source data data data 6 AM Absent 10 No No No Feb 4 (Heroin ng/mL informa informa informa 2014 ) tion in tion in tion in 6:34 AM Screen source source source data data data Bupreno Absent 5 ng/mL No No No Feb 4 rphine informa informa informa 2014 Screen tion in tion in tion in 6:34 AM source source source data data data Creatin 206.0 No mg/dL No \\.br\\Gr Feb 4 ine Ur informa informa eater 2015 tion in tion in than 6:34 AM source source 20: data data Consist ent with valid sample\\ .br\\Gre ater than 2 but less than 20: Possibl e dilutio n\\.br\\L ess than 2: Questio nable valid sample Procedu These No No No No Feb 4 re Note drug informa informa informa informa 2014 Screen classes tion in tion in tion in tion in 6:34 AM have source source source source been data data data data screene d by immunoa ssay and are for medical purpose s only. The results should not be used for non-med ical purpose s. If confirm ation is desired , please place a separat e order for each drug confirm ation. Specime ns will be saved for 3 s days should additio nal orders/ testing be desired . UA Observa Value Referen Units Interpr Notes Date tion ce etation Range UA Yellow No No No No Jul 04 Color informa informa informa informa 2013 tion in tion in tion in tion in 3:23 PM source source source source data data data data UA Clear Clear No No No Jul 04 Appear informa informa informa 2013 tion in tion in tion in 3:23 PM source source source data data data UA Negativ Negativ No No No Jul 04 Glucose e e informa informa informa 2013 tion in tion in tion in 3:23 PM source source source data data data UA 1+ (15 Negativ No Abnorma No Jul 04 Ketones mg/dl) e informa l informa 2013 tion in tion in 3:23 PM source source data data UA Trace Negativ No Abnorma No Jul 04 Blood e informa l informa 2013 tion in tion in 3: PM source source data data UA pH 6.0 4.8 - No No ReferJul 04 8.0 informa informa ce 2013 tion in tion in range 3:23 PM source source valid data data for random specime ns only. UA 200 Negativ No Abnorma No Jul 04 Protein mg/dl e informa l informa 2013 tion in tion in 3:23 PM source source data data UA 2 mg/dl <=1 No Abnorma No Jul 04 Urobili mg/dl informa l informa 2013 nogen tion in tion in 3:23 PM source source data data UA Negativ Negativ No No No Jul 04 Nitrite e e informa informa informa 2013 tion in tion in tion in 3:23 PM source source source data data data UA Leuk Negativ Negativ No No No Jul 04 Est e e informa informa informa 2013 tion in tion in tion in 3:23 PM source source source data data data UA Spec 1.026 1.001 - No No ReferJul 04 Grav 1.035 informa informa ce 2013 tion in tion in range 3:23 PM source source valid data data for random specime ns only. UA WBC 1 0 - 4 /HPF No No Jul 04 informa informa 2013 tion in tion in 3:23 PM source source data data UA RBC 4 0 - 3 /HPF High No Jul 04 informa 2013 tion in 3:23 PM source data UA 4+ No No No No Jul 04 Squam informa informa informa informa 2013 Epi tion in tion in tion in tion in 3:23 PM source source source source data data data data UA 2+ No No No No Jul 04 Mucous informa informa informa informa 2013 tion in tion in tion in tion in 3:23 PM source source source source data data data data UA Trace No No Abnorma No Jul 04 Bacteri informa informa l informa 2014 a tion in tion in tion in 3:23 PM source source source data data data UA Hyal 2 0 - 2 /LPF No No Jul 04 Cast informa informa 2014 tion in tion in 3:23 PM source source data data UA Observa Value Referen Units Interpr Notes Date tion ce etation Range UA Light No No No No Jun 27 Color Yellow informa informa informa informa 2014 tion in tion in tion in tion in 12:57 source source source source PM data data data data UA Clear Clear No No No Jun 27 Appear informa informa informa 2014 tion in tion in tion in 12:57 source source source PM data data data UA Negativ Negativ No No No Jun 27 Glucose e e informa informa informa 2014 tion in tion in tion in 12:57 source source source PM data data data UA Negativ Negativ No No No Jun 27 Ketones e e informa informa informa 2014 tion in tion in tion in 12:57 source source source PM data data data UA Negativ Negativ No No No Jun 27 Blood e e informa informa informa 2014 tion in tion in tion in 12:57 source source source PM data data data UA pH 7.5 4.8 - No No Referen Jun 27 8.0 informa informa ce 2013 tion in tion in range 12:57 source source valid PM data data for random specime ns only. UA Negativ Negativ No No No Jun 27 Protein e e informa informa informa 2013 tion in tion in tion in 12:57 source source source PM data data data UA Normal <=1 No No No Jun 27 Urobili mg/dl informa informa informa 2014 nogen tion in tion in tion in 12:57 source source source PM data data data UA Negativ Negativ No No No Jun 27 Nitrite e e informa informa informa 2014 tion in tion in tion in 12:57 source source source PM data data data UA Leuk Negativ Negativ No No No Jun 27 Est e e informa informa informa 2014 tion in tion in tion in 12:57 source source source PM data data data UA Spec 1.003 1.001 - No No Referen Dec 19 Grav 1.035 informa informa ce 2014 tion in tion in range 12:57 source source valid PM data data for random specime ns only. DOA Screen Observa Value Referen Units Interpr Notes Date tion ce etation Range Cannabi Absent 50 No No No Dec 19 noid ng/mL informa informa informa 2014 Screen tion in tion in tion in 12:34 source source source PM data data data Benzodi Absent 200 No No No Dec 19 azepine ng/mL informa informa informa 2014 s tion in tion in tion in 12:34 Screen source source source PM data data data Cocaine Absent 150 No No No Dec 19 Screen ng/mL informa informa informa 2014 tion in tion in tion in 12:34 source source source PM data data data Opiate Absent 300 No No No Dec 19 300 ng/mL informa informa informa 2014 Screen tion in tion in tion in 12:34 source source source PM data data data Barbitu Absent 200 No No No Dec 19 rate ng/mL informa informa informa 2014 Screen tion in tion in tion in 12:34 source source source PM data data data Ampheta Absent 500 No No No Dec 19 mine ng/mL informa informa informa 2014 Screen tion in tion in tion in 12:34 source source source PM data data data Phencyc Absent 25 No No No Dec 19 lidine ng/mL informa informa informa 2014 Screen tion in tion in tion in 12:34 source source source PM data data data Methado Absent 300 No No No Dec 19 ne ng/mL informa informa informa 2014 Screen tion in tion in tion in 12:34 source source source PM data data data Oxycodo Absent 100 No No No Dec 19 ne ng/mL informa informa informa 2014 Screen tion in tion in tion in 12:34 source source source PM data data data 6 AM Absent 10 No No No Dec 19 (Heroin ng/mL informa informa informa 2014 ) tion in tion in tion in 12:34 Screen source source source PM data data data Bupreno Absent 5 ng/mL No No No Dec 19 rphine informa informa informa 2014 Screen tion in tion in tion in 12:34 source source source PM data data data Creatin 23.0 No mg/dL No \\.br\\Gr Jun 27 ine Ur informa informa eater 2013 tion in in than 12:34 source source 20: PM data data Consist ent with valid sample\\ .br\\Gre ater than 2 but less than 20: Possibl e dilutio n\\.br\\L ess than 2: Questio nable valid sample Procedu These No No No No Jun 27 re Note drug informa informa informa informa 2013 Screen classes tion in tion in tion in tion in 12:34 have source source source source PM been data data data data screene d by [facility] and are for medical purpose s only. The results should not be used for non-med ical purpose s. If confirm ation is desired , please place a separat e order for each drug confirm ation. Specime ns will be saved for 3 busines s days should additio nal orders/ testing be desired . PN US OB DETAIL ANATOMY SINGLE OR FIRST GESTATION Observa Value Referen Units Interpr Notes Date tion ce etation Range Obstetr No No No No Jun 27 ic informa informa informa informa 2013 Ultraso tion in tion in tion in on in und source source source source Report\\ data data data data .br\\Det tamia Survey\\ .br\\Ref erral from:\\. br\\ROXANN KRISTINE [facility] are\\.br \\[facility] [address]\\. br\\[address] [place] [address]\\. br\\[address] [phone]\\.br\\[place] [address] [facility] [phone]\\.br\\P omid: [phone] Fax \\.br\\F ax: \\.br\\- ------- ------- ------- ------- ------- ------- ------- ------- ------- ------\\ .br\\PAT IENT INFORMA TION:\\. br\\Name : CHERRY OLMSTEAD MR#: [id number]\\.br\\A ge: 34 y/o Exam Date: 014\\.br \\: 02/21/19 82 Visit #: 2\\.br\\L MP: 01/22/20 14 Locatio n: [facility] \\.br\\ [facility] are-- [facility]\\.br\\# Fetuses : 1\\.br\\I NDICATI ONS: Exclude anomali es, abdomin al pain, ? leaking fluid\\. br\\---- ------- ------- ------- ------- ------- ------- ------- ------- ------- ---\\.br \\PHYSIC AL EXAM:\\. br\\Heig ht: 5' 2"\\.br\\ Pre-Pre gnancy Weight: 200 lbs.\\.b r\\Pre-P regnanc y BMI: 36.6 (Obese) \\.br\\Cu rrent Weight: 182 lbs.\\.b r\\MEDIC AL HISTORY :\\.br\\O ther/Co mments: Medicat ions: Zanax, Albuter ol,\\.br \\Proton ix, Phenerg an, Buspar, \\.br\\Se roquel, Flovent , Neuroti n,\\.br\\ Trazado ne, Tylenol 3 prn history of\\.br\\ PTD's @ 36 1/2 weeks (PROM) and 36\\.br\\ weeks (falied testing ) both emargen cy\\.br\\ c-secti ons, two miscarr iages\\. br\\---- ------- ------- ------- ------- ------- ------- ------- ------- ------- ---\\.br \\DATING :\\.br\\A ssigned GA\\.br\\ GA by LMP GA by US (17 wk us) ISABELL\\.br \\22 3/7 wks 19 4/7 wks 19 5/7 wks 11/16/14 \\.br\\BI OMETRY: \\.br\\BP D: 46.2 mm 20 0/7 wks HC: 170.4 mm 19 4/7 wks\\.br \\(58%) (38%)\\. br\\Femu r: 30.8 mm 19 4/7 wks AC: 149.7 mm 20 2/7 wks\\.br \\(32%) (61%)\\. br\\HC/A C: 1.14 (0.99-1 .23)\\.b r\\EFW: 345 gms 0 lbs 12 oz (%)\\.br \\Lat Ventric les: R-7.4 mm Cerebel lum: 19.4 mm (\\.br\\C isterna Magna: 6.9 mm Nuchal Fold: 3.56 mm\\.br\\ Nasal Bone: Present Heart Rate: 155 bpm\\.br \\FL/AC: 0.21 HL/BPD: 0.75\\.b r\\FL/BP D: 0.67 Humerus : 35.1 mm 2\\.br\\0 /7 (>95%)\\ .br\\PRE SENTATI ON/CORD /PLACEN TA/FLUI D/CERVI X:\\.br\\ Present ation: Transve rse, spine down, head left\\.b r\\Umbil ical Cord: 3 Vessel Cord. Normal inserti on into the placent a.\\.br\\ Placent a: Anterio r. There Is No Evidenc e Of Placent a Previa. \\.br\\Gr jonh 1\\.br\\A mniotic Fluid: Maximum Vertica l Pocket = 5.3 cm. Subject alexia AF\\.br\\ Volume: Normal. \\.br\\Ce rvix: Normal\\ .br\\FET AL ANATOMI LAKESHIA SURVEY: \\.br\\No rmal\\.b r\\----- -\\.br\\C alvariu m Intracr anial Anatomy \\.br\\La teral Ventric les Cerebel lum\\.br \\Choroi d Plexus Cistern a Magna\\. br\\Midl ine Falx Cavum Septum Pelluci dum\\.br \\Neck Anatomy Nuchal Fold\\.b r\\Face Nose\\.b r\\Lips Cervica l Spine\\. br\\Thor acic Spine Aortic Arch\\.b r\\Cardi ac Dyer Cardiac Positio n\\.br\\F etal Heart Rate Diaphra gm\\.br\\ IVC SVC\\.br \\Ventra l Wall Stomach \\.br\\Ki dney - Left Kidney - Right\\. br\\Blad simon Genital ia\\.br\\ Humerus - Left Humerus - Right\\. br\\Fore arm - Left Forearm - Right\\. br\\Hand - Left Hand - Right\\. br\\Fing ers - Right Lower Extremi ties\\.b r\\Subop timal\\. br\\---- ------\\ .br\\Pro file Palate\\ .br\\Lum bar Spine Sacrum\\ .br\\Fou r Chamber View RVOT\\.b r\\LVOT Ductal Arch\\.b r\\Not Visuali zed\\.br \\------ ------- -\\.br\\T hree Vessel View Fingers - Left\\.b r\\Abnor mal\\.br \\------ --\\.br\\ None identif ied\\.br \\Findin gs\\.br\\ ------- -\\.br\\E chogeni c Foci: Present : Left Ventric le, Single\\ .br\\SIGNAL ENGINEER FINDING S:\\.br\\ Uterus: Normal\\ .br\\Ova sherwin: Left: Normal - 26 x 20 x 17 mm.\\.br \\Right: Normal - 17 x 16 x 12 mm.\\.br \\EFW Summary Table\\. br\\Exam Date Fetus # EFW Percent ile\\.br \\------ --- ------- ---- ------- ---\\.br \\ 1 345\\.br \\ 4 1 222\\.br \\AMNIOT IC FLUID VOLUME: \\.br\\NO RMAL Subject alexia AF Volume: Normal. Maximum Vertica l\\.br\\P ocket: 5.3 cm\\.br\\ CERVIX: Visuali zed\\.br \\------ ------- ------- ------- ------- ------- ------- ------- ------- ------- -\\.br\\C OMMENTS :\\.br\\V isualiz ation of anatomy is limited by subopti mal \\. br\\posi tion.\\. br\\The biometr ic measure ment are consist ent the previou sly\\.br \\establ ished dates. The amnioti c fluid volume is normal. No gross\\. br\\feta l anatomi c abnorma lities are identif ied, however visuali zation\\ .br\\is subopti mal on today's exam. Recomme nd repeat ultraso und in 4-6\\.br \\weeks to attempt better visuali zation of anatomy .\\.br\\I solated left echogen ic focus in the heart is again noted.\\ .br\\Lef t ovarian cyst is noted measuri ng 6 x 8 x 5 mm.\\.br \\The patient is in Triage and a prelimi nary report was sent with the\\.br \\michael muñiz in her chart. A verbal report was called to Dr. Jackson.\\. br\\Elec scott carter signed by ELYSE Navarro\\.br\\Yusra PEDROZA MD, PhD on 014 at\\.br\\ 4:54 pm\\.br\\ ------- ------- ------- ------- ------\\ .br\\RAVI CHOUDHURY MD, PhD\\.br \\------ ------- ------- ------- ------- ---\\.br \\Sonogr apher: Steffanie Tadeo , RT, RDMS PN US OB 14+ WEEKS SINGLE OR FIRST GESTATION Observa Value Referen Units Interpr Notes Date tion ce etation Range Obstetr No No No No Jun 3 ic informa informa informa informa 2013 Ultraso tion in tion in tion in tion in und source source source source Report\\ data data data data .br\\Det tamia Survey\\ .br\\Ref erral from:\\. br\\JOEL PERAZA MD @ [facility] eladio [facility] are\\.br \\[facility] Lalita carvalho [email or web address]\\. br\\[place] [address] [place] [address]\\. br\\Phon e: Jack Frame Tender [phone]\\.br\\F ax: [place] [phone]\\.br\\F ax [phone]\\.br\\- ------- ------- ------- ------- ------- ------- ------- ------- ------- ------\\ .br\\PAT IENT INFORMA TION:\\. br\\Name : CHERRY OLMSTEAD MR#: [id number]\\.br\\A ge: 34 y/o Exam Date: 06/11/20 14\\.br\\ : [birth year] Visit #: 1\\.br\\L MP: 01/22/20 14 Locatio n: [facility]\\.br\\ [facility] are-- Ghassan d\\.br\\# Fetuses : 1\\.br\\I NDICATI ONS: Campbell madrigal abortio n, size and dates\\. br\\---- ------- ------- ------- ------- ------- ------- ------- ------- ------- ---\\.br \\PHYSIC AL EXAM:\\. br\\Heig ht: 5' 2"\\.br\\ Pre-Pre gnancy Weight: 200 lbs.\\.b r\\Pre-P regnanc y BMI: 36.6 (Obese) \\.br\\Cu rrent Weight: 186 lbs.\\.b r\\MEDIC AL HISTORY :\\.br\\O ther/Co mments: Medicat ions: Klonopi n, Albuter ol,\\.br \\Proton ix, Phenerg an, Buspar, \\.br\\Se roquel, Advair history of PTD's @\\.br\\3 6 1/2 weeks (PROM) and 36 weeks\\. br\\(fal ied testing ) both emargen cy\\.br\\ c-secti ons, two miscarr iages\\. br\\---- ------- ------- ------- ------- ------- ------- ------- ------- ------- ---\\.br \\DATING :\\.br\\A ssigned GA\\.br\\ GA by LMP GA by US (17 wk us) ISABELL\\.br \\20 1/7 wks 17 3/7 wks 17 3/7 wks 11/16/14 \\.br\\BI OMETRY: \\.br\\BP D: 38.5 mm 17 5/7 wks HC: 142.2 mm 17 4/7 wks\\.br \\(60%) (43%)\\. br\\Femu r: 23.4 mm 17 0/7 wks AC: 122.6 mm 17 6/7 wks\\.br \\(12%) (71%)\\. br\\HC/A C: 1.16 (0.99-1 .23)\\.b r\\EFW: 222 gms 0 lbs 8 oz (%)\\.br \\Lat Ventric les: R-7.2 mm Cerebel lum: 18.9 mm (\\.br\\C isterna Magna: 6.2 mm Nuchal Fold: 3.09 mm\\.br\\ Heart Rate: 155 bpm FL/AC: 0.19\\.b r\\HL/BP D: 0.65 FL/BPD: 0.61\\.b r\\Humer us: 25.3 mm 18\\.br\\ 0/7 (68%)\\. br\\PRES ENTATIO N/CORD/ PLACENT A/FLUID /CERVIX :\\.br\\P resenta tion: Footlin g Breech\\ .br\\Umb ilical Cord: 3 Vessel Cord. Normal inserti on into the placent a.\\.br\\ Placent a: Anterio r. There Is No Evidenc e Of Placent a Previa. \\.br\\Gr jonh 0\\.br\\A mniotic Fluid: Maximum Vertica l Pocket = 3.3 cm. Subject alexia AF\\.br\\ Volume: Normal. \\.br\\Ce rvix: Normal\\ .br\\FET AL ANATOMI LAKESHIA SURVEY: \\.br\\No rmal\\.b r\\----- -\\.br\\C alvariu m Lateral Ventric les\\.br \\Cerebe llum Choroid Plexus\\ .br\\Cis terna Magna Midline Falx\\.b r\\Neck Anatomy Nuchal Fold\\.b r\\Face Cervica l Spine\\. br\\Thor acic Spine Lumbar Spine\\. br\\Four Chamber View Aortic Arch\\.b r\\Cardi ac Dyer Cardiac Positio n\\.br\\F etal Heart Rate Diaphra gm\\.br\\ IVC SVC\\.br \\Ductal Arch Ventral Wall\\.b r\\Stoma ch Kidney - Left\\.b r\\Kidne y - Right Bladder \\.br\\Ge nitalia Humerus - Left\\.b r\\Humer us - Right Forearm - Left\\.b r\\Forea rm - Right Hand - Left\\.b r\\Hand - Right Femur - Left\\.b r\\Femur - Right Lower Leg - Left\\.b r\\Lower Leg - Right Foot - Left\\.b r\\Toes - Left\\.b r\\Subop timal\\. br\\---- ------\\ .br\\Int racrani al Anatomy Cavum Septum Pelluci dum\\.br \\Sacrum LVOT\\.b r\\Foot - Right\\. br\\Not Visuali zed\\.br \\------ ------- -\\.br\\P rofile Palate\\ .br\\Nos e Lips\\.b r\\RVOT Three Vessel View\\.b r\\Finge rs - Left Fingers - Right\\. br\\Toes - Right\\. br\\Abno rmal\\.b r\\----- ---\\.br \\None identif ied\\.br \\Findin gs\\.br\\ ------- -\\.br\\E chogeni c Foci: Present : Left Ventric le, Single\\ .br\\SIGNAL ENGINEER FINDING S:\\.br\\ Uterus: Normal\\ .br\\Ova sherwin: Left: Normal - 25 x 19 x 21 mm.\\.br \\Right: Not Seen\\.b r\\EFW Summary Table\\. br\\Exam Date Fetus # EFW Percent ile\\.br \\------ --- ------- ---- ------- ---\\.br \\ 4 1 222\\.br \\AMNIOT IC FLUID VOLUME: \\.br\\NO RMAL Subject alexia AF Volume: Normal. Maximum Vertica l\\.br\\P ocket: 3.3 cm\\.br\\ CERVIX: Visuali zed\\.br \\------ ------- ------- ------- ------- ------- ------- ------- ------- ------- -\\.br\\C OMMENTS :\\.br\\V isualiz ation of anatomy is limited by early gestati onal age\\.br \\and subopti mal positio n. A singlet on intraut erine pregnan cy\\.br\\ consist ent with 17 3/7 weeks gestati on is identif ied, corresp onding\\ .br\\to an off-carlos es scenari o. cardiac activit y is present . The\\.br \\left ovary is visuali zed and appears normal. The left ovary\\. br\\cont ains a simple cyst measuri ng 12 x 13 x 11 mm. Isolate d left\\.b r\\echog enic focus in the heart is noted.\\ .br\\Rec ommend correct ion of ISABELL to and a repeat scan in 4\\.br\\w eeks to further evaluat e anatomy that could not be\\.br\\ visuali zed today.\\ .br\\Gil nk you for this referra l.\\.br\\ Electro nically signed by ALONSO HIDALGO\\. Paula arceo on 06/11/20 14 at 9:14 am\\.br\\ ------- ------- ------- ------- ------\\ .br\\ALONSO HIDALGO M.D.\\.b r\\----- ------- ------- ------- ------- ----\\.b r\\Sonog rapher: Steffanie Tadeo , RT, RDMS POC UA Observa Value Referen Units Interpr Notes Date tion ce etation Range UA Yellow No No No No Jun 06 Color informa informa informa informa 2013 POC tion in tion in tion in tion in 9:03 PM source source source source data data data data UA Clear Clear No No No Jun 06 Appear informa informa informa 2013 POC tion in tion in tion in 9:03 PM source source source data data data UA Gluc Negativ Negativ No No No Jun 06 POC e e informa informa informa 2013 tion in tion in tion in 9:03 PM source source source data data data UA Negativ Negativ No No No Jun 06 Ketones e e informa informa informa 2013 POC tion in tion in tion in 9:03 PM source source source data data data UA Negativ Negativ No No No Jun 06 Blood e e informa informa informa 2013 POC tion in tion in tion in 9:03 PM source source source data data data UA pH 7.0 5.0 - No No No Jun 06 POC 8.0 informa informa informa 2013 tion in tion in tion in 9:03 PM source source source data data data UA Negativ Negativ No No No Jun 06 Protein e e informa informa informa 2013 POC tion in tion in tion in 9:03 PM source source source data data data UA 0.2 <=1 No No No Jun 06 Urobili mg/dl mg/dl informa informa informa 2013 nogen tion in tion in tion in 9:03 PM POC source source source data data data UA Negativ Negativ No No No Jun 06 Nitrite e e informa informa informa 2013 POC tion in tion in tion in 9:03 PM source source source data data data UA Leuk Negativ Negativ No No No Jun 06 Est e e informa informa informa 2013 POC tion in tion in tion in 9:03 PM source source source data data data UA SG 1.010 1.001 - No No No Jun 06 POC 1.035 informa informa informa 2013 tion in tion in tion in 9:03 PM source source source data data data Chl/GC ThP Results Observa Value Referen Units Interpr Notes Date tion ce etation Range C. Thin No No No Test Jun 06 trachom Prep informa informa informa methodo 2013 atis/N. tion in tion in tion in logy is 1:22 PM source source source gonorrh data data data amplifi oeae ed DNA Specime probe n using [employer] A negativ e result does not rule out the presenc e of DNA in concent rations below\\. br\\the level of detecti on of the assay.\\ .br\\\\.b r\\The perform ance charact eristic s of this test were validat ed by [facility] are Laborat ory. This laborat ory is authori lucy under the Clinica l\\.br\\L aborato ry Improve ment Amendme nts (CLIA) as qualifi ed to perform high-co mplexit y testing . Complia nce stateme nt is availab le in the Laborat ory.\\.b r\\\\.br\\ Extract ion of genetic materia l from urine and Thin Prep samples was perform ed using a method that was develop ed and validat ed in the perform ing laborat ory. Detaile d methodo logy is availab le upon request .\\.br\\\\ .br\\In rare instanc es, non-pat hogenic strains of Neisser ia may cross react and give a false positiv e result for N. gonorrh ea. If concern ed that this cross\\. br\\reac tivity has occurre d, please recolle ct and submit for genital culture prior to treatme nt.\\.br \\\\.br\\T he perform ance of this test has not been verifie d in minor aged patient s. This test is indicat ed for medical purpose s only. Chlamyd Negativ No No No No Jun 06 ia e informa informa informa informa 2013 trachom tion in tion in tion in tion in 1:22 PM atis source source source source data data data data Neisser Negativ No No No No Jun 06 ia e informa informa informa informa 2013 gonorrh tion in tion in tion in tion in 1:22 PM oeae source source source source data data data data Rubella G Observa Value Referen Units Interpr Notes Date tion ce etation Range Rubella 4.990 No Index_V No < 0.90 May 09 IgG informa alue informa - 2014 tion in tion in Negativ 12:05 source source e\\.br\\N PM data data o signifi cant level of detecta ble rubella IgG Antibod y\\.br\\( Presume d Non-Imm une)\\.b r\\\\.br\\ 0.90 to 0.99 - Equivoc al\\.br\\ Repeat testing in 10-14 days is recomme nded\\.b r\\\\.br\\ > or = 1.00 - Positiv e\\.br\\P revious exposur e or vaccina tion (Immune )\\.br\\\\ .br\\Not e: The magnitu de of the measure d result is not indicat alexia of the amount of antibod y present . Hep Prf-Ac Observa Value Referen Units Interpr Notes Date tion ce etation Range Hepatit Negativ Negativ No No No May 09 is B e e informa informa informa 2014 virus tion in tion in tion in 9:23 AM surface source source source Ag data data data [Presen ce] in Serum by Immunoa ssay Hep B Negativ Negativ No No No May 09 Core e e informa informa informa 2014 IgM tion in tion in tion in 9:23 AM source source source data data data Hepatit Negativ Negativ No No No May 09 is A e e informa informa informa 2013 virus tion in tion in tion in 9:22 AM Ab source source source [Units/ data data data volume] in Serum by Radioim munoass ay (KELLY) Hep C Positiv Negativ No Abnorma High May 09 Ab e e informa l / 2013 tion in cutoff 10:19 source ratio AM data (>= 5, Archite ct Anti-HC V). [facility] are Laborat ory recomme nds collect ing a new specime n and testing for Hepatit is C RNA Quantit ative PCR to confirm positiv ity and provide a baselin e viral load for monitor ing treatme nt efficac y. ABSC IgG Observa Value Referen Units Interpr Notes Date tion ce etation Range ABSC Negativ No No No No May 08 IgG Int e informa informa informa informa 2014 tion in tion in tion in tion in 5:22 PM source source source source data data data data ABORh Observa Value Referen Units Interpr Notes Date ti ce etation Range ABORh A POS No No No No May 08 Int informa informa informa informa 2013 tion in tion in tion in tion in 5:18 PM source source source source data data data data Glucose Observa Value Referen Units Interpr Notes Date ti ce etation Range Glucose 83 74 - mg/dL No No May 08 Lvl 100 informa informa 2014 tion in tion in 5:05 PM source source data data Auto Diff Observa Value Referen Units Interpr Notes Date ti ce etation Range Neutrop 66.7 No % No No May 08 hils informa informa informa 2013 [#/volu tion in tion in tion in 4:22 PM me] in source source source Blood data data data by Automat ed count Lymphoc 26.1 No % No No May 08 ytes informa informa informa 2013 [#/volu tion in tion in tion in 4:22 PM me] in source source source Blood data data data by Automat ed count Monocyt 5.8 No % No No May 08 es informa informa informa 2013 [#/volu tion in tion in tion in 4:22 PM me] in source source source Blood data data data by Automat ed count Eos 0.9 No % No No Oct 30 Percent informa informa informa 2014 tion in tion in tion in 4:22 PM source source source data data data Baso 0.5 No % No No Oct 30 Percent informa informa informa 2014 tion in tion in tion in 4:22 PM source source source data data data Neut# 8.0 1.8 - x10(3)/ High No Oct 30 7.7 mcL informa 2013 tion in 4:22 PM source data Lymph# 3.1 0.6 - x10(3)/ No No Oct 30 4.8 mcL informa informa 2014 tion in tion in 4:22 PM source source data data Walker# 0.7 0.0 - x10(3)/ No No Oct 30 1.3 mcL informa informa 2014 tion in tion in 4:22 PM source source data data Eos# 0.1 0.0 - x10(3)/ No No Oct 30 0.5 mcL informa informa 2013 tion in tion in 4:22 PM source source data data Baso# 0.1 0.0 - x10(3)/ No No Oct 30 0.2 mcL informa informa 2013 tion in tion in 4:22 PM source source data data CBC Observa Value Referen Units Interpr Notes Date tion ce etation Range LEUKOCY 12.0 4.0 - x10(3)/ High No Oct 30 ANJEL 11.0 mcL informa 2013 tion in 4:22 PM source data Erythro 4.20 3.80 - x10(6)/ No No Oct 30 cytes 5.10 mcL informa informa 2013 [#/volu tion in tion in 4:22 PM me] in source source Blood data data by Automat ed count Hemoglo 13.2 12.0 - gm/dL No No Oct 30 bin 15.6 informa informa 2013 [Mass/v tion in tion in 4:22 PM olume] source source in data data Blood Hematoc 39.0 35.7 - % No No Oct 30 rit 45.9 informa informa 2013 [Volume tion in tion in 4:22 PM source source Fractio data data n] of Blood by Automat ed count Erythro 92.8 82.5 - fL No No May 08 cyte 99.8 informa informa 2014 mean tion in tion in 4:22 PM corpusc source source ular data data volume [Entiti c volume] by Automat ed count Erythro 31.4 27.0 - pg No No May 08 cyte 34.3 informa informa 2014 mean tion in tion in 4:22 PM corpusc source source ular data data hemoglo bin [Entiti c mass] by Automat ed count Erythro 33.9 32.1 - gm/dL No No May 08 cyte 35.3 informa informa 2014 mean tion in tion in 4:22 PM corpusc source source ular data data hemoglo bin concent ration [Mass/v olume] by Automat ed count Erythro 12.8 11.5 - % No No May 08 cyte 15.0 informa informa 2013 distrib tion in tion in 4:22 PM ution source source width data data [Ratio] by Automat ed count Platele 233 144 - x10(3)/ No No May 08 ts 423 mcL informa informa 2013 [#/volu tion in tion in 4:22 PM me] in source source Blood data data by Automat ed count MPV 10.7 6.8 - fL No No May 08 10.8 informa informa 2013 tion in tion in 4:22 PM source source data data EK EKG 12 LEAD Observa Value Referen Units Interpr Notes Date tion ce etation Range Sinus No No No No Oct 11 rhythm. informa informa informa informa 2013 \\.br\\An tion in tion in tion in tion in 11:20 terolat source source source source AM eral T data data data data wave changes are nonspec ific\\.b r\\No signifi cant change from earlier record\\ .br\\\\.b r\\Borde rline ECG BPP w/ NST Observa Value Referen Units Interpr Notes Date tion ce etation Range Obstetr No No No No Jan 01 ic informa informa informa informa 2012 Ultraso tion in tion in tion in tion in und source source source source ReportA data data data data ntenata l Testing Referra l from:Dr Dayan FERNANDEZ [facility] [address] [place] [address]Xx [place] [address] PhonePh one: [phone] FaxFax: ------ ------- ------- ------- ------- ------- ------- ------- ------- ------- -PATISAL T INFORMA TION:Na me: CHERRY OLMSTEAD MR#: [id number]: 31 y/o Exam Date: 01/02/20 12DOB: [birth year] Visit #: 8LMP: 04/16/20 11 Locatio n: [facility] bijalre-- Ghassan nunez# Fetuses : 1INDICA TIONS: Hyperte nsion, asthma, obesity , Subutex use, priorce sarean section ------- ------- ------- ------- ------- ------- ------- ------- ------- ------- PHYSICA L EXAM: ight: 5' 2"Pulse : 84Blood Pressur e 1: 110/67 Semi-Fo wlersME DICAL HISTORY :Drug Allergi es: Yes (IVP dye, shellfi sh, bee stings) Other/C omments : Medicat ions: Pepcid, Klonopi n,Albut chica, Paxil, Phenerg an,ster oids, subutex ------- ------- ------- ------- ------- ------- ------- ------- ------- ------- DATING: Sonido BARRETT by LMP (LMP) EDD37 2/7 wks 37 2/7 wks 01/21/12 PRESENT ATION/C ORD/NESTOR CENTA/C ERVIX:P resenta tion: Cephali cPlacen ta: Anterio r. There Is No Evidenc e Of Placent a Previa. Grade 2NON STRESS TEST:NO N-REACT ALEXIA Baselin e FHR: 165 bpm, Tachyca rdiaVar iabilit y: Minimal Pattern : Suspici ousFeta l Kick-Co unt: Count Reinfor cedAcou stic Stim: NoContr actions : NoAMNIO TIC FLUID VOLUME: NORMAL Total IVONNE: 12.4 cm. Subject alexia AF Volume: Normal. 41st percent ile. Maximum Vertica lPocket : 4.5 cmBIOPH YSICAL PROFILE :8 out of 10 0 Points for: NST 2 Points for: Tone,Mo vement, Breathi ng, Amnioti c Fluid-- ------- ------- ------- ------- ------- ------- ------- ------- ------- -----CO MMENTS: assessm ent begins at 1039 and ends at 1059. The patient denies having pain. The domesti c violenc e screen is negativ e. Thepati ent does not have functio nal limitat ions. The patient has nobarri ers to educati on. The patient denies alcohol and illicit druguse during pregnan cy. Medicat ions are reviewe d with no changes .Audibl e movemen ts are noted and movemen ts are perceiv edby the patient . The patient denies having headach e, visuald isturba nces, epigast kirsten pain, dizzine ss. Moderat e amount ofswell ing to hands and ankles. The signs and symptom s of labor,U TI, rupture of membran es and preecla mpsia were reviewe d. The fetalki ck count protoco l was reviewe d and the patient verbali zedunde rstandi ng. The patient has once weekly testing schedul ed.The antenat al testing was perform ed by Brooke Sales RN.The NST shows minimal to absent variabi lity with 2 late decelsp resent. Recomme nd deliver y due to non-jamilah ssuring antenat altesti ng.Repo rt called to Dr. Dick.Eladio mccarty signed by KATIE CELESTIN M.D. on 01/02/20 12 at12:02 pm----- ------- ------- ------- ------- -KWAME CELESTIN M.D.--- ------- ------- ------- ------- ------- ------- ------- ------- ------- ----Julio Cesar smith r: Teo navarro, RNC, RDMS PN US IVONNE WITH NST Observa Value Referen Units Interpr Notes Date tion ce etation Range Obstetr No No No No Jose 18 ic informa informa informa informa 2011 Ultraso tion in tion in tion in tion in und source source source source ReportA data data data data ntenata l Testing Referra l from:[facility] [address] [address] [address] PhonePh one: [phone] FaxFax: ------ ------- ------- ------- ------- ------- ------- ------- ------- ------- -MICHAEL Muñiz INFORMA TION:Na me: CHERRY OLMSTEAD MR#: [id number]: 31 y/o Exam Date: 12/26/19 12DOB: [birth year] Visit #: 7LMP: 04/16/20 11 [facility]atio n[facility] Ghassan nunez# Fetuses : 1INDICA TIONS: Hyperte nsion, asthma, obesity , Subutex use, priorce sarean section ------- ------- ------- ------- ------- ------- ------- ------- ------- ------- PHYSICA L EXAM:He ight: 5' 2"Pulse : 87Blood Pressur e 1: 144/85 Semi-Fo wlersBl ood Pressur e 2: 126/69 Left Lateral MEDICAL HISTORY :Drug Allergi es: Yes (IVP dye, shellfi sh, bee stings) Other/C omments : Medicat ions: Pepcid, Clonopi n,Albut chica, Paxil, Phenerg an,ster oids, subutex ------- ------- ------- ------- ------- ------- ------- ------- ------- ------- DATING: Sonido nunez NENA by LMP (LMP) EDD36 2/7 wks 36 2/7 wks 01/21/12 PRESENT ATION/C ORD/NESTOR CENTA/C ERVIX:P resenta tion: Cephali cUmbili lakeshia Cord: 3 Vessel Cord.Pl acenta: Right, Fundal. There Is No Evidenc e Of Placent aPrevia . Grade 2NON STRESS TEST:RE ACTIVE Baselin e FHR: 135 bpm, NormalV ariabil ity: Moderat ePatter n: Acceler ationsF etal Kick-Co unt: Count Reinfor cedAcou stic Stim: YesCont raction s: NoFetal Status: Reassur ingAMNI OTIC FLUID VOLUME: NORMAL Total IVONNE: 17.0 cm. Subject alexia AF Volume: Normal. 62nd percent ile. Maximum Vertica lPocket : 4.5 cm----- ------- ------- ------- ------- ------- ------- ------- ------- ------- --COMME NTS:Fet al assessm ent begins at 10:59 and ends at 11:35.T he patient denies having pain. The domesti c violenc e screen isnegat alexia. The patient does not have functio nal limitat ions. Thepati ent has no barrier s to educati on. The patient denies alcohol and illicit drug use during pregnan cy. Medicat ions are reviewe dwith no changes . Audible movemen ts are noted and fetalmo vements are perceiv ed by the patient . The patient denies havingh eadache , visual disturb ances, epigast kirsten pain or dizzine ss.Yany chaparro noted both feet and ankles. The signs and symptom s oflabor , UTI, rupture of membran es and preecla mpsia were reviewe d.The kick count protoco l was reviewe d and the patient verbali zed underst anding. The patient has twice weekly fetalte sting schedul ed.Dr. Aleman was notifie d of the patient 's blood pressur es andyany chaparro. Dr. Aleman asked to have patient present to his officei n [place] after the antenat al testing for evaluat ion.The antenat al testing was perform ed by Shannon Cerrato RN.Than k you for this referra lDayanElect ronical ly signed by LYNDA RYAN M.D. on 12/26/19 12 at 2:41pm- ------- ------- ------- ------- -----PAPPAS M.D.--- ------- ------- ------- ------- ------- ------- ------- ------- ------- ----Julio Cesar smith r: Chelly Huitron RDMS PN US IVONNE WITH NST Observa Value Referen Units Interpr Notes Date tion ce etation Range Obstetr No No No No Jose 11 ic informa informa informa informa 2011 Ultraso tion in tion in tion in tion in und source source source source ReportA data data data data ntenata l Testing Referra l from:Dr Dayan ALEMAN [facility] [address] [address] [address] PhonePh one: [phone] FaxFax: ------ ------- ------- ------- ------- ------- ------- ------- ------- ------- -MICHAEL Muñiz INFORMA TION:Na me: CHERRY OLMSTEAD MR#: [id number]: 31 y/o Exam Date: 12/19/19 12DOB: [birth year] Visit #: 6LMP: 04/16/20 11 Locatio n: [facility] bijal-- Ghassan nunez# Fetuses : 1INDICA TIONS: Hyperte nsion, asthma; obesity ; subutex ; prior cesarea nsectio n------ ------- ------- ------- ------- ------- ------- ------- ------- ------- -PHYSIC AL EXAM:He ight: 5' 2"Pulse : 106Bloo d Pressur e 1: 145/80 Semi-Fo wlersBl ood Pressur e 2: 135/79 Left Lateral MEDICAL HISTORY :Drug Allergi es: Yes (IVP dye, shellfi sh, bee stings) Other/C omments : Medicat ions: Pepcid, Clonopi n,Albut chica, Paxil, Phenerg an, ,steroi ds, subutex ------- ------- ------- ------- ------- ------- ------- ------- ------- ------- DATING: Sonido nunez NENA by LMP (LMP) EDD35 2/7 wks 35 2/7 wks 01/21/12 PRESENT ATION/C ORD/NESTOR CENTA/C ERVIX:P resenta tion: Cephali cPlacen ta: Posteri or, Fundal. There Is No Evidenc e OfPlace nta Previa. Grade 2NON STRESS TEST:RE ACTIVE Baselin eladio FHR: 130 bpm, NormalV ariabil ity: Moderat ePatter n: Acceler ationsF etal Kick-Co unt: Count Reinfor cedAcou stic Stim: YesCont raction s: NoFetal Status: Reassur ingAMNI OTIC FLUID VOLUME: NORMAL Total IVONNE: 15.7 cm. Subject alexia AF Volume: Normal. 57th percent ile. Maximum Vertica lPocket : 5.5 cm----- ------- ------- ------- ------- ------- ------- ------- ------- ------- --COMME NTS:Fet al assessm ent begins at 1120 and ends at 1140. The patient denies having pain. The domesti c violenc e screen is negativ e. Thepati ent does not have functio nal limitat ions. The patient has nobarri ers to educati on. The patient denies alcohol and illicit druguse during pregnan cy. Medicat ions are reviewe d with no changes .Audibl e movemen ts are noted and movemen ts are perceiv edby the patient . The patient denies having headach e, visuald isturba nces, epigast kirsten pain, dizzine ss or swellin g. The signsan d symptom s of labor, UTI, rupture of membran es and preecla mpsiawe re reviewe d. The kick count protoco l was reviewe d and thepati ent ralph mccloud. The patient has twice weeklyf etal testing schedul ed.The antenat al testing was perform ed by Shannon Cerrato RN.Elec rutha lly signed by MARIA ISABEL ADAME M.D. on 12/19/19 12 at3:25 pm----- ------- ------- ------- ------- -MADELYN PARISH M.D.--- ------- ------- ------- ------- ------- ------- ------- ------- ------- ----Son luis r: Elizabeth Cordova RDMS PN US IVONNE WITH NST Observa Value Referen Units Interpr Notes Date tion ce etation Range Obstetr No No No No Jose 4 ic informa informa informa informa 2011 Ultraso tion in tion in tion in tion in und source source source source ReportA data data data data ntenata l Testing Referra l from:Dr Dayan ALEMAN [facility] [address] [address] [address] PhonePh one: FaxFax: ------ ------- ------- ------- ------- ------- ------- ------- ------- ------- -MICHAEL T INFORMA TION:Na me: CHERRY OLMSTEAD MR#: [id number]: 31 y/o Exam Date: 2DOB: [birth year] Visit #: 5LMP: 04/16/20 11 Locatio n: [facility]-- Ghassan nunez# Fetuses : 1INDICA TIONS: Hyperte nsion, asthma; obesity ; subutex ; prior cesarea nsectio n------ ------- ------- ------- ------- ------- ------- ------- ------- ------- -PHYSIC AL EXAM:He ight: 5' 2"Pulse : 89Blood Pressur e 1: 132/79 Semi-Fo wlersME DICAL HISTORY :Drug Allergi es: Yes (IVP dye, shellfi sh, bee stings) Other/C omments : Medicat ions: Pepcid, Clonopi n,Albut chica, Paxil, Phenerg an, ,steroi ds, subutex ------- ------- ------- ------- ------- ------- ------- ------- ------- ------- DATING: Carlotaeladio neda BARRETT by LMP (LMP) EDD34 2/7 wks 34 2/7 wks 01/21/12 PRESENT ATION/C ORD/NESTOR CENTA/C ERVIX:P resenta tion: Cephali cPlacen ta: Posteri or. There Is No Evidenc e Of Placent aPrevia . Grade 1NON STRESS TEST:RE ACTIVE Baselin e FHR: 150 bpm, NormalV ariabil ity: Moderat ePatter n: Acceler ationsF etal Kick-Co unt: Count Reinfor cedAcou stic Stim: NoContr actions : NoFetal Status: Reassur ingAMNI OTIC FLUID VOLUME: NORMAL Total IVONNE: 9.7 cm. Subject alexia AF Volume: Normal. 16th percent ile. Maximum Vertica l Pocket: 3.9cm-- ------- ------- ------- ------- ------- ------- ------- ------- ------- -----CO MMENTS: assessm ent begins at 1053 and ends at 1115. The patient denies having pain. The domesti c violenc e screen is negativ e. Thepati ent does not have functio nal limitat ions. The patient has nobarri ers to educati on. The patient denies alcohol and illicit druguse during pregnan cy. Medicat ions are reviewe d with no changes .Audibl e movemen ts are noted and movemen ts are perceiv edby the patient . The patient denies having headach e, visuald isturba nces, epigast kirsten pain, dizzine ss or swellin g. The signsan d symptom s of labor, UTI, rupture of membran es and preecla mpsiawe re reviewe d. The kick count protoco l was reviewe d and thepati ent verbali zed underst anding. The patient has twice weeklyf etal testing schedul ed.The antenat al testing was perform ed by Shannon Cerrato RN.Elec tronica lly signed by KAYKAY RODRIGUEZ M.D. on 2 at 12:58pm ------- ------- ------- ------- ------Vi ALLRED M.D.--- ------- ------- ------- ------- ------- ------- ------- ------- ------- ----Son ogciara r: Teo navarro, RNC, RDMS [address] OB TV, Cervix Observa Value Referen Units Interpr Notes Date tion ce etation Range Obstetr No No No No November 16 ic informa informa informa informa 2011 Ultraso tion in tion in tion in tion in und source source source source ReportD data data data data etailed SurveyR eferral from:Dr Dayan [facility] are. [facility] [address] [place] [address] [address] PhonePh one: FaxFax: ------ ------- ------- ------- ------- ------- ------- ------- ------- ------- -PATIEN T INFORMA TION:Na me: CHERRY OLMSTEAD MR#: [id number]: 31 y/o Exam Date: 11/17/19 12DOB: [birth year] Visit #: 3LMP: 04/16/20 11 [facility]# Fetuses : 1INDICA TION: Follow- up placent a, current tobacco use---- ------- ------- ------- ------- ------- ------- ------- ------- ------- ---PHYS ICAL EXAM:Vick ight: 5' 2"MEDIC AL HISTORY :Drug Allergi es: Yes (IVP dye, shellfi sh, bee stings) Other/C omments : Medicat ions: Pepcid, Clonopi n,Albut chica, Paxil, Phenerg an, ,steroi ds, subutex ------- ------- ------- ------- ------- ------- ------- ------- ------- ------- DATING: Sonido nunez GAGA by LMP GA by US (LMP) EDD30 5/7 wks 29 5/7 wks 30 5/7 wks 01/21/12 BIOMETR Y:BPD: 73.5 mm 29 3/7 wks HC: 274.4 mm 30 0/7 wks(19% ) (12%)Fe mur: 57.0 mm 29 6/7 wks AC: 270.4 mm 31 1/7 wks(31% ) (54%)Ce ph Index:7 3 % (75%-85 %) HC/AC: 1.01 (0.99-1 .23)EFW : 1584 gms 3 lbs 8 oz(46%) Cerebel lum: 33.6 mm (24%) Cistern a Magna: 8.05 mmFetal Heart Rate: 143 bpm FL/AC: 0.21HL/ BPD: 0.7 FL/BPD: 0.77Hum erus: 51.9 mm 302/7 (46%)NE ESENTAT ION/COR D/PLACE NTA/FLU ID/CERV IX:Pres entatio n: Augustin BreechU mbilica l Cord: 3 Vessel Cord. Normal inserti on into the placent a.Place nta: Posteri or, Low Lying Positio n, Grade 1Amniot ic Fluid: Maximum Vertica l Pocket = 4.8 cm. Subject alexia AFVolum e: Normal. (IVONNE=15 .1 cm)Cerv ix: NormalF ETAL ANATOMI LAKESHIA SURVEY: Normal- -----Ca lvarium Intracr anial Anatomy Cerebel lum Cistern a MagnaMi dline Falx Cavum Septum Pelluci dumProf ile FaceNos e LipsCer vical Spine Thoraci c SpineLu mbar Spine SacrumO ther Views Cardiac AxisCar diac Positio n Heart MotionC ardiac Rhythm Diaphra gmVentr al Wall Stomach Left Kidney Right KidneyB ladder BowelGe nitalia Upper Extremi tiesLow er Extremi ties Umbilic al CordSub optimal ------- ---Four Chamber ViewNot Visuali zed---- ------- ---Late ral Ventric les Choroid PlexusO rbits PalateL VOT RVOTAor tic Arch Ductal ArchIVC SVCAbno rmal--- -----No ne identif iedEFW Summary TableEx am Date Fetus # EFW Percent ile---- ----- ------- ---- ------- ---11/16 1 1584 46 % 2 1 450 %AMNIOT IC FLUID VOLUME: NORMAL Total IVONNE: 15.1 cm. Subject alexia AF Volume: Normal. 53rd percent ile. Maximum Vertica lPocket : 4.8 cmCERVI X: Visuali zed---- ------- ------- ------- ------- ------- ------- ------- ------- ------- ---COMM ENTS:Vi sualiza tion of anatomy is limited by advance d gestati onalage , subopti mal positio n.The biometr ic measure ments are consist ent with menstru aldates .The amnioti c fluid volume is within normal limits. There are nogross abnorma lities identif ied.Fet al breathi ng movemen ts, tone and gross body movemen ts are seendur ing this exam.Th e placent a is low-lyi ng with the inferio r margin of the placent alying approxi mately 3.2 cm from the interna l cervica l os.Ther e is no evidenc e of vascula r flow/po oling demonst rated in thisare a by either 2D imaging or color doppler flow.Th ank you for this referra l.Elect ronical ly signed by KAYKAY RODRIGUEZ M.D. on 11/17/19 12 at 9:38am- ------- ------- ------- ------- -----AN URIEL ALLRED M.D.--- ------- ------- ------- ------- --Sonog rapher: Jacquie eJnsen, RDMS [address] OB F/U Observa Value Referen Units Interpr Notes Date tion ce etation Range Obstetr No No No No November 16 ic informa informa informa informa 2011 Ultraso tion in tion in tion in tion in und source source source source ReportD data data data data etailed SurveyR prasanna from:Dr Dayan ALE[facility] [address] [address] [address] PhonePh one: [phone] FaxFax: ------ ------- ------- ------- ------- ------- ------- ------- ------- ------- -MICHAEL SON TION:Na me: CHERRY OLMSTEAD MR#: [id number]: 31 y/o Exam Date: 11/17/19 12DOB: [birth year] Visit #: 4LMP: 04/16/20 11 Locatio n: [facility] hernando-- Ghassan nunez# Fetuses : 1INDICA TION: Follow- up placent a, current tobacco use---- ------- ------- ------- ------- ------- ------- ------- ------- ------- ---PHYS ICAL EXAM:Vick ight: 5' 2"MEDIC AL HISTORY :Drug Allergi es: Yes (IVP dye, shellfi sh, bee stings) Other/C omments : Medicat ions: Pepcid, Clonopi n,Albut chica, Paxil, Phenerg an, ,donnoi ds, subutex ------- ------- ------- ------- ------- ------- ------- ------- ------- ------- DATING: Sonido BARRETT by LMP GA by US (LMP) EDD30 11/13 wks 30 57 wks 01/21/12 BIOMETR Y:PRESE NTATION /CORD/P LACENTA /FLUID/ CERVIX: ANATOMI LAKESHIA SURVEY: No anatomi lakeshia study was perform ed.EFW Summary TableEx am Date Fetus # EFW Percent ile---- ----- ------- ---- ------- ---11/16 1 1584 46 % 2 1 450 %------ ------- ------- ------- ------- ------- ------- ------- ------- ------- -PATRICIA TS:See cervix/ tv exam for report. Electro nically signed by KAYKAY RODRIGUEZ M.D. on 11/17/19 12 at 9:29am- ------- ------- ------- ------- -----AN URIEL ALLRED M.D.--- ------- ------- ------- ------- --Sonog rapher: Jacquie Jensen RDMS
--- OUTSIDE RECORDS SUMMARY | 2017-05-18 17:16 | External Medical Summary Rpt ---
Author Author ARZAFAR Hodges, [employer] Organization [employer] Address Unknown Phone Unavailable Results MPO/KY-3 Ab Observa Value Referen Units Interpr Notes [...] ormed by [facility] oriazael,\\ .br\\[address] [place] [address] \\. br\\[email or web address] .[employer], Abdirashid Echevarria MD - Lab. Directo r [...] 1:03 AM UP source source data data [place] 0.17 <=0.34 kunits/ No No Mar 30 [...] Sheep 0.12 <=0.34 kunits/ No No Sep [place]- L informa informa 2016 [facility] tion in tion in 1:03 AM source source data data IgE-ARU 1005 <=214 kunits/ High REFEREN Sep 21 P L CE 2017 INTERVA 1:03 AM L: Immunog lobulin E, Serum\\. br\\Acce ss complet e set of age- and/or gender- specifi c referen ce\\.br\\ interva ls for this test in the [facility] Laborat ory Test Directo ry\\.br\\ ([email or web address]). Alterna <0.10 <=0.34 kunits/ No No [...] <=0.34 kunits/ No No Sep 21 n [place] L informa informa 2017 tion in tion [...] AM source Laborat data ories,\\ .br\\[address] [place] [address] \\. br\\www. [employer], Abdirashid Echevarria MD - Lab. Directo r Peanut- 0.13 <=0.34 kunits/ No No Sep 21 [facility] L informa informa 2017 tion in tion in 1:03 AM source source data data Pigweed 0.10 <=0.34 kunits/ No No Sep 21 -[facility] L informa informa 2017 tion in tion in 1:03 AM source source data data Mauritian 0.15 <=0.34 kunits/ No No Sep 21 [...] in 1:03 AM source source data data [place] 0.11 <=0.34 kunits/ No No Sep 21 [...] The presenc e of\\.br\\ antibod ies to Choudhuyr is often associa jones with renal disease .\\.br\\P erforme d by [facility] ories,\\ .br\\[address], [facility] [place] [address] [phone]\\. br\\www. [employer], Abdirashid Echevarria MD - Lab. Directo r [...] \\centro mere, RNA polymer ase III and U3-NEON MOLDER, PM/Scl, or Th/To\\. br\\anti bodies. \\.br\\Pe rformed by [employer] brower,\\ .br\\[address] [facility],[place] [id number] \\. br\\www. [employer], Abdirashid Echevarria MD - Lab. Directo r NEON MOLDER IgG-[facility] Observa Value Referen Units Interpr Notes Date tion ce etation Range NEON MOLDER Ab 0 0 - 40 A_unit/ No INTERPR Sep 20 IgG-ARU mL informa ETIVE 2016 P tion in INFORMA 6:26 PM source TION: data Ribonuc leic Protein (HANK)An tibody, IgG\\.br \\ 29 AU/mL or Less ....... ...... Negativ e\\.br\\ 30 - 40 AU/mL ....... ....... .. Equivoc al\\.br\\ 41 AU/mL or Greater ....... ... Positiv e\\.br\\R FISHING ROD ASSEMBLER antibod y is seen in 95-100 percent of mixed connect alexia tissue\\ .br\\dis ease and is conside red specifi c for this syndrom e if other\\. br\\anti bodies are negativ e; NEON MOLDER is also present in 20-30 percent of\\.br\\ systemi c lupus erythem atosus and 15-25 percent of progres sive\\.b r\\syste gail scleros is. NEON MOLDER antigen s also contain epitope s that are\\.br \\immuno logical ly identic al to free Choudhury antigen s, therefo re, the\\.br \\Choudhury antibod y respons e must be conside red when interpr eting NEON MOLDER\\.br \\result s.\\.br\\ Perform ed by [employer]oumya brower,\\ .br\\[address] [place] [address] [phone]\\. br\\www. [employer], Abdirashid Echevarria MD - Lab. Directo r [...] in 1:09 PM source source data data Archuleta# 0.7 0.0 - x10(3)/ No No Jose [...] in 8:04 AM source source data data Archuleta# 0.8 0.0 - x10(3)/ No No Apr [...] in 3:06 PM source source data data Archuleta# 0.6 0.0 - x10(3)/ No No Oct [...] enatal Testing \\.br\\Re ferral from:\\. br\\SEVEN [facility] are\\.br \\SEP [facility] [address]\\. br\\[address] [place] [address]\\. br\\[place] [address] House Wrecker [phone]\\.br\\P omid: Reading Room [phone]\\.br\\F ax: [phone] Fax \\.br\\- ------- ------- ------- ------- ------- ------- ------- ------- ------- ------\\ .br\\PAT IENT INFORMA TION:\\. br\\Name : CHERRY OLMSTEAD MR#: [id number] 9\\.br\\A ge: 34 y/o Exam Date: 10/24/19 15\\.br\\ : [birth year] Visit #: 7\\.br\\L MP: 01/22/20 14 Locatio n: [facility]\\.br\\ [facility] are-- [facility] d\\.br\\# Fetuses : 1\\.br\\I NDICATI ON: [...] \\39 2/7 wks 36 4/7 wks 11/16/14 \\.br\\[place] ESENTAT ION/COR D/PLACE NTA/CER VIX:\\.b r\\Prese ntation [...] Testing \\.br\\Re ferrsharron from:\\. br\\SEVEN Molina [facility] are\\.br \\[facility]P [facility] [address] [place] [address] Drive\\. br\\[address] [place] [address]\\. br\\[facility] [address] House Wrecker [phone]\\.br\\P omid: Reading Room \\.br\\F ax: [phone] Fax \\.br\\- ------- ------- ------- ------- ------- ------- ------- ------- ------- ------\\ .br\\PAT IENT INFORMA TION:\\. br\\Name : CHERRY OLMSTEAD MR#: [id number]\\.br\\A ge: 34 y/o Exam Date: 10/21/19 [...] \\38 6/7 wks 36 1/7 wks 11/16/14 \\.br\\[place] ESENTAT ION/COR D/PLACE NTA/CER VIX:\\.b r\\Prese ntation [...] enatal Testing \\.br\\Re ferral from:\\. br\\[facility] \\[facility] [address] [place] [address]\\. br\\[address] [facility] [place] [address]\\. br\\[place] [address] House Wrecker \\.br\\P omid: Reading Room [phone] 8\\.br\\F ax: Fax \\.br\\- ------- ------- ------- ------- ------- ------- ------- ------- ------- ------\\ .br\\PAT IENT INFORMA TION:\\. br\\Name : CHERRY OLMSTEAD MR#: [id number] 9\\.br\\A ge: 34 y/o Exam Date: 5\\.br\\D OB: 02/21/19 82 Visit #: 5\\.br\\L MP: 01/22/20 14 Locatio n: [facility] th\\.br\\ [facility] are-- [facility] d\\.br\\# Fetuses : 1\\.br\\I NDICATI ON: [...] \\37 6/7 wks 35 1/7 wks 11/16/14 \\.br\\[place] ESENTAT ION/COR D/PLACE NTA/CER VIX:\\.b r\\Prese ntation [...] and the\\.br \\patien t [facility]i [facility]. The patient has twice weekly\\ .br\\fet al testing schedul ed.\\.br \\The antenat al testing was perform ed by Christi Jules RN.\\.br \\Thank you for this referra l.\\.br\\ Electro nically signed by ALONSO HIDALGO\\. Paula arceo on 5 at 1:06 pm\\.br\\ ------- ------- ------- ------- ------\\ .brTFIFANY HIDALGO M.D.\\.b r\\----- ------- ------- ------- ------- [...] leukocy anjel in Blood by Manual count Lomira 1 No % No No Sep 18 [...] in 11:19 source source AM data data Archuleta# 1.2 0.0 - x10(3)/ No No Mar [...] ferral from:\\. br\\TINY USONG CAMARILLO ER, DO [facility] are\\.br \\(Ileana parks)\\.b r\\[facility] [address] [place] [address] Drive\\. br\\[address] [place] [address]\\. br\\[address] \\.br\\[place] [address] Reading Room [phone]\\.br\\P omid: Fax \\.br\\F ax: \\.br\\- ------- ------- ------- ------- ------- ------- ------- ------- ------- ------\\ .br\\PAT IENT INFORMA TION:\\. br\\Name : CHERRY OLMSTEAD MR#: [id number]\\.br\\A ge: 34 y/o Exam Date: 09/19/19\\.br\\ : 02/21/19 82 Visit #: 4\\.br\\L MP: 01/22/20 14 [facility]atio n[facility] \\.br\\ [facility] are-- [place] d\\.br\\# Fetuses : 1\\.br\\I NDICATI [...] \\34 2/7 wks 31 4/7 wks 11/16/14 \\.br\\[place] ESENTAT ION/COR D/PLACE NTA/CER VIX:\\.b r\\Prese ntation [...] Genotyp e II Assay.\\ .br\\Per formed at: [facility]\\.br\\ [address], [address]\\.br \\ [place] [address] HCV QT GR-SOLS Observa Value Referen Units Interpr Notes Date tion ce etation Range HCV RNA 9802025 <15 IU/mL High No Sep 4 informa 2014 Quant-S tion in 7:12 PM OLS source data HCV RNA 6.20 <1.18 No High \\.br\\Sep 10 informa is test 2014 Log-CAROLINA tion in 7:12 PM S source utilize data s the [place] FDA approve d Hilaria HCV Test Kit by RT-PCR. \\.br\\Pe rformed at: [facility]\\.br\\ [address] [facility] [address], [address]\\.br \\ [place] [address] JAMEL Scn Observa Value Referen Units Interpr [...] tamia Survey\\ .br\\Ref erral from:\\. br\\SEVEN ISS[facility] are\\.br \\[facility] [address]\\. br\\[address] [place] [address]\\. br\\[place] [address] House Wrecker \\.br\\P omid: Reading Room [phone]\\.br\\F ax: Fax \\.br\\- ------- ------- ------- ------- ------- ------- ------- ------- ------- ------\\ .br\\PAT IENT INFORMA TION:\\. br\\Name : CHERRY OLMSTEAD MR#: [id number] 9\\.br\\A ge: 34 y/o Exam Date: 5\\.br\\D OB: 02/21/19 82 Visit #: 3\\.br\\L MP: 01/22/20 14 Locatio n: [facility]\\.br\\ [facility] are-- [facility] d\\.br\\# Fetuses : 1\\.br\\I NDICATI ON: [...] Four Chamber View\\.b r\\Three Vessel View Cardiac [place]\\.b r\\Cardi ac Positio n Heart Rate\\.b r\\Lungs [...] br\\Abno rmal\\.b r\\----- ---\\.br \\None identif ied\\.br \\DBA FINDING S:\\.br\\ Uterus: Normal\\ .br\\Ova sherwin: Left: [...] ultraso und perform ed at .\\.br \\Elizab [facility] are. The abdomin al circumf erence is [...] tamia Survey\\ .br\\Ref erral from:\\. br\\ROXANN KRISTINE [facility] are\\.br \\[facility] [address]\\. br\\[address] [place] [address]\\. br\\[address] \\.br\\[place] [address] Reading Room \\.br\\P omid: Fax \\.br\\F ax: \\.br\\- ------- ------- ------- ------- ------- ------- ------- ------- ------- ------\\ .br\\PAT IENT INFORMA TION:\\. br\\Name : CHERRY OLMSTEAD MR#: [id number]\\.br\\A ge: 34 y/o Exam Date: 014\\.br \\: 02/21/19 82 Visit #: 2\\.br\\L MP: 01/22/20 14 Locatio n: [facility] \\.br\\ [facility] are-- [facility] d\\.br\\# Fetuses : 1\\.br\\I NDICATI [...] br\\Thor acic Spine Aortic Arch\\.b r\\Cardi ac Whittington Cardiac Positio n\\.br\\F etal Heart Rate Diaphra [...] Foci: Present : Left Ventric le, Single\\ .br\\DBA FINDING S:\\.br\\ Uterus: Normal\\ .br\\Ova sherwin: Left: [...] .br\\Ref erral from:\\. br\\JOEL PERAZA MD @ [facility] eladio [facility] are\\.br \\[facility] Lalita carvalho [address]\\. br\\[place] [address] [place] [address]\\. br\\Phon e: House Wrecker \\.br\\F ax: Reading Room [phone]\\.br\\F ax \\.br\\- ------- ------- ------- ------- ------- ------- ------- ------- ------- ------\\ .br\\PAT IENT INFORMA TION:\\. br\\Name : CHERRY OLMSTEAD MR#: [id number]\\.br\\A ge: 34 y/o Exam Date: 06/11/20 14\\.br\\ : 02/21/19 82 Visit #: 1\\.br\\L MP: 01/22/20 14 Locatio n: [facility]\\.br\\ [facility] are-- [place] d\\.br\\# Fetuses : 1\\.br\\I NDICATI [...] br\\Four Chamber View Aortic Arch\\.b r\\Cardi ac Whittington Cardiac Positio n\\.br\\F etal Heart Rate Diaphra [...] Foci: Present : Left Ventric le, Single\\ .br\\DBA FINDING S:\\.br\\ Uterus: Normal\\ .br\\Ova sherwin: Left: [...] oeae ed DNA Specime probe n using [employer] A negativ e result does not rule out the presenc e of DNA in concent rations below\\. br\\the level of detecti on of the assay.\\ .br\\\\.b r\\The perform ance charact eristic s of this test were validat ed by [facility] are Laborat ory. This laborat ory is [...] data (>= 5, Archite ct Anti-HC V). [facility] are Laborat ory recomme nds collect ing [...] in 4:22 PM source source data data Archuleta# 0.7 0.0 - x10(3)/ No No Oct [...] l Testing Referra l from:Dr Dayan FERNANDEZ [facility]. [facility] [address] [place] [address] [place] [address] PhonePh one: FaxFax: ------ ------- ------- ------- ------- ------- ------- ------- ------- ------- -PATISAL T INFORMA TION:Na me: CHERRY OLMSTEAD MR#: [id number]: 31 y/o Exam Date: 01/02/20 12DOB: [birth year] Visit #: 8LMP: 04/16/20 11 Locatio n: [facility] bijalre-- [place]an nunez# Fetuses : 1INDICA TIONS: [...] having headach e, visuald isturba nces, epigast kirtsen pain, dizzine ss. Moderat e amount ofswell [...] Testing Referra l from:[facility] [address] [address] [address] PhonePh one: [phone] FaxFax: ------ ------- ------- ------- ------- ------- ------- ------- ------- ------- -MICHAEL Muñiz INFORMA TION:Na me: CHERRY OLMSTEAD MR#: [id number]: 31 y/o Exam Date: 12/26/19 12DOB: [birth year] Visit #: 7LMP: 04/16/20 11 [facility]atio [facility] [place]# Fetuses : 1INDICA TIONS: Hyperte nsion, asthma, [...] have patient present to his officei n [place] after the antenat al testing for evaluat [...] from:Dr Dayan ALEMAN [facility] [address] [address] [address] PhonePh one: [phone] FaxFax: ------ ------- ------- ------- ------- ------- ------- ------- ------- ------- -MICHAEL Muñiz INFORMA TION:Na me: CHERRY OLMSTEAD MR#: [id number]: 31 y/o Exam Date: 12/19/19 12DOB: [birth year] Visit #: 6LMP: 04/16/20 11 Locatio n: [facility] bijal-- Ghassan nunez# Fetuses : 1INDICA TIONS: [...] l Testing Referra l from:Dr Dayan ALEMAN [facility] [address] [address] [address] PhonePh one: FaxFax: ------ ------- ------- ------- ------- ------- ------- ------- ------- ------- -MICHAEL T INFORMA TION:Na me: CHERRY OLMSTEAD MR#: [id number]: 31 y/o Exam Date: 2DOB: [birth year] [...] ----Son ogciara r: Teo navarro, RNC, RDMS [address] OB TV, Cervix Observa Value Referen Units Interpr Notes Date tion ce etation Range Obstetr No No No No November 16 ic informa informa informa informa 2011 Ultraso tion in tion in tion in tion in und source source source source ReportD data data data data etailed SurveyR eferral from:Dr Dayan [facility] are. [facility] [address] [place] [address] [address] PhonePh one: FaxFax: ------ ------- ------- ------- ------- ------- ------- ------- ------- ------- -PATIEN T INFORMA TION:Na me: CHERRY OLMSTEAD MR#: [id number]: 31 y/o Exam Date: 11/17/19 12DOB: [birth year] Visit #: 3LMP: 04/16/20 11 [facility] [place] n[facility]z# Fetuses : [...] ------- ------- ------- ------- ------- ------- DATING: Soindo nunez GAGA by LMP GA by US [...] 0.7 FL/BPD: 0.77Hum erus: 51.9 mm 302/7 (46%)[place] ESENTAT ION/COR D/PLACE NTA/FLU ID/CERV IX:Pres entatio [...] ------- ------- ------- ------- --Sonog rapher: Jacquie Jensen, RDMS [address] OB F/U Observa Value Referen Units Interpr Notes Date tion ce etation Range Obstetr No No No No November 16 ic informa informa informa informa 2011 Ultraso tion in tion in tion in tion in und source source source source ReportD data data data data etailed SurveyR prasanna from:Dr Dayan ALEMAN [facility] [address] [address] [address] PhonePh one: FaxFax: ------ ------- ------- ------- ------- ------- ------- ------- ------- ------- -MICHAEL SON TION:Na me: CHERRY OLMSTEAD MR#: [id number]: 31 y/o Exam Date: 11/17/19 12DOB: [birth year] Visit #: 4LMP: 04/16/20 11 Locatio n: [facility] hernando-- Ghassan nunez# Fetuses : 1INDICA TION: [...]
[2017-05-18] MEDS ORDERED: TYLENOL ES500 MG PO (17:20)
[2017-05-18] MEDS ORDERED: IBUPROFEN800 MG PO (17:20)
[2017-05-18] MEDS ORDERED: ALEVE220 MG PO (17:21)
[2017-05-18 17:45] VITALS: BP 121/75
--- NOTE | 2017-05-18 17:58 | Emergency Room Report ---
History of Present Illness Time Seen by [id number] Presenting Problem in Triage Pt arrived:Walked Presenting Problem:PT REPORTS C/O BUSTED LIP R/T FALLING. PT ALSO REPORTS SHE CUT OPEN KNOT ON LEFT ELBOW DUE TO PAIN. LEFT ELBOW REDDENED AND DRAINING YELLOW IN COLOR. PT REPORTS FEVER,CHILLS, VOMITING AND UNRELIEVED PAIN SINCE YESTERDAY. 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 Y Clinical Suspician of Infection? Y Mental Status: 1 - Regular (Normal Baseline) Sepsis Risk:Possible Sepsis Risk Have you (or family members/close friends) recently traveled outside the [place]? N If Yes, where/when: Have you had exposure to infectious disease within the past month? N TB? Other? Specify: The patient 37 years old white female ALLERGIC to table. Claims that she was shaving she developed that her LEFT elbow. She did a an incision to drain the LEFT elbow at, she she developed pain radiating to the LEFT arm with no redness. The skin around the incision is swelling. She denies fever or chills. She complains of a lip laceration from hitting the sink. Source patient, RN notes reviewed Exam Limitations no limitations ALLERGIES Coded Allergies: SHELLFISH (FOOD) (Intermediate, ANAPHYLAXIS 05/18/17) ketorolac (From TORADOL) (Intermediate, 05/18/17) cyclobenzaprine (From FLEXERIL) (05/18/17) Uncoded Allergies: CONTRAST DYE (Severe, ANAPHYLAXIS 01/02/17) Home Medications Active Scripts Baclofen (Lioresal 10mg Tab) 10 MG PO TID #30 TAB Prov: 04/03/17 Reported Medications Gabapentin (Gabapentin 600MG) 800 MG PO TID #90 TAB Acetaminophen (Tylenol XS 500MG) 2,000 MG PO Q6HP PRN PAIN Ibuprofen (Ibuprofen 800MG) 800 MG PO PRN PRN PAIN Naproxen Sodium (Aleve) 440 MG PO PRN PRN PAIN Albuterol Sulfate (Ventolin Hfa) 0.09 MG IH PRN PRN ASTHMA #18 Pantoprazole Sodium 40 MG PO DAILY #30 Hydroxyzine Pamoate (Vistaril) 50 MG PO BID History Medical History General CAD? No Angina: No KS: No Hypertension? No Hyperlipidemia? Yes CHF? No DVT? No PE? No COPD? No Asthma? Yes Anemia? No GERD? Yes Gastric ulcers? Yes GI Bleed? Yes Hernia? Yes Thyroid Problems? No Hypothyroidism? No CVA? No Seizures? Yes Diabetes? No Insulin Dependent: No Insulin Pump: No Home FSBS? No Renal Insuffiency? No End Stage Renal Disease? No UTI? No Stones? No BPH? No GB Disease: Yes Nephritic Syndrome? No Asplenia? No Hepatitis? Yes Sickle Cell Disease? No Arthritis? No Migraines? Yes Cataracts? No Glaucoma? No MRSA? No HIV? No TB? No Anxiety? Yes Depression? Yes Cancer? No More? 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 Respiratory no symptoms reported Cardiovascular no symptoms reported Gastrointestinal no symptoms reported Genitourinary no symptoms reported. Musculoskeletal see HPI, joint pain Skin see HPI (swelling around the incision) Psychiatric/Neurological no symptoms reported Physical Exam Vital Signs Vital Signs Date Time Temp Pulse Resp B/P Pulse O2 O2 Flow FiO2 Ox Delivery Rate 05/18 1745 91 18 121/75 99 05/18 1702 97.9 95 20 130/86 95 - WBC >12,000 or <4,000 or 10% bands? 2 or more SIRS Criteria Met? B/P:121/75 MAP:100 Creatinine >2.0? UA output<0.5ml/kg/hr for 2 hrs? Platelet count >100,000? Lactate >2.0mmol/1? INR >1.2 or PTT > than 60 sec? Evidence of Organ Dysfunction? Provider documented clinical suspician of infection? Y Sepsis Criteria Count: 2 Sepsis Risk: Possible Sepsis Risk General Appearance normal appearance, WD/WN Eye Exam - bilateral eye normal exam, bilateral eye PERRL, bilateral eye EOMI Ear, Nose, Throat hearing grossly normal, normal ENT inspection Neck normal inspection, non-tender, supple, full range of motion Respiratory Status Yes: trachea midline, chest symmetrical, non tender chest. No: respiratory distress. Lung Sounds bilateral: normal breath sounds, lungs clear. Cardiovascular normal exam, regular rate/rhythm, no peripheral edema, no gallop, no JVD, no murmur, no rub, normal peripheral pulses Gastrointestinal normal bowel sounds, normal exam, non tender, soft, no organomegaly Extremities there was 1 cm incision over the olcreanon of the LEFT elbow surrounded by skin hypertrophy with no redness or purulent discharge, no skin redness or streaks. 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 No Departure Departure Time of Disposition 1746 Disposition Against Medical Advice Clinical Impression Primary Impression: Tramadol allergy Secondary Impressions: Left against medical advice Condition STABLE Referrals DEBRA VOSS (Family) Additional Instructions I discussed with the patient the need for IV antibiotics she was asking for pain medicine. She is ALLERGIC to Toradol and required narcotics. The patient has already incised her LEFT elbow. I told the patient that I would be more than happy to start her labs, give her antibiotics and referre her to an orthopedic surgeon but she insisted on obtaining stron controled pain medicine and i declined. she LEFT against medical advise. I informed her that she can return if she changes her mind or feels worse. Discharge Counseling Counseled pt/family regarding diagnosis, test results, medications/RX, home care, follow up needs ED Critical Care Critical Care No If Critical Care minutes are documented, the time involved in the performance of seperately reportable procedures was not counted toward critical care time documented. I directly delivered medical care to this critically ill and/or injured patient. Timely evaluation and treatment was necessary to address the significant organ system(s) dysfunction present in this patient. at 2554
== END 2017-05-18 17:46 | disposition left against medical advice (07) ==
LOC: ER 16:56
DX: T40.4X5A Adverse effect of other synthetic narcotics, initial encounter (principal); L08.89 Other specified local infections of the skin and subcutaneous tissue; Z88.8 Allergy status to other drugs, medicaments and biological substances; E78.5 Hyperlipidemia, unspecified; J45.909 Unspecified asthma, uncomplicated; R56.9 Unspecified convulsions; F17.210 Nicotine dependence, cigarettes, uncomplicated; F41.8 Other specified anxiety disorders